=== PATIENT | female | born 1945 | race Two or more races ===

== ENCOUNTER 2017-06-29 02:03 | Inpatient (IN) | payer MEDICARE, MEDICAID ==
[~2017-06-29] VITALS: Ht 172.7 cm; Wt 62.2 kg
--- NOTE | 2017-06-29 02:15 | NUR ---
PT TO ER BED 6, PT BIB PA FROM [facility]. PT HAS DRAINING RLQ ABD ABCESS. PT PLACED IN GOWN AND ON MANAGER COSTING. VSS/RESP EVEN UNLABORED/NAD NOTED/SKIN MOIST TO THE TOUCH/DENIES N-V-D/AOX2. AWAITING MD CURRIE.
[2017-06-29] MEDS ORDERED: PIPERACILLIN /TAZOBACTAM 3.375 G in IV D5W 50 ML IV ONE (02:30)
[2017-06-29] MEDS ORDERED: IV NS 0.9% 1,000 ML BAG IV ONE ×3 (02:30→05:30)
[2017-06-29] MEDS ORDERED: VANCOMYCIN 1 GM in IV D5W 250 ML IV ONE ×2 (02:30→05:00)
--- NOTE | 2017-06-29 02:30 | NUR ---
AT BEDSIDE FOR EVAL. WOUND CULT OBTAINED AND SENT TO LAB FROM [facility] TO RLQ.
--- NOTE | 2017-06-29 02:40 | NUR ---
20G IV TO R FA USING ASEPTIC TECH, BLOOD CULT X 2 AND BLOOD HANDED OVER TO LAB AT THE BEDSIDE. 18G IV TO L FA USING ASEPTIC TECH, BOTH IV'S FLUSH EASILY WITH NS.
[2017-06-29] MEDS ORDERED: VANCOMYCIN 1 GM VIAL ONE ×2 (02:54→03:02)
[2017-06-29] MEDS ORDERED: PIPERACILLIN /TAZOBACTAM 3.375 G VIAL IV ONE ×2 (02:54→03:02)
[2017-06-29 02:58] LABS: BASOPHILS # (AUTO) 0.2 /CMM (0.0-0.2); BASOPHILS % (AUTO) 0.5 % (0.0-2.0); EOSINOPHILS % (AUTO) 0.1 % (0.0-6.0); HEMATOCRIT 28 % (33-45); HEMOGLOBIN 8.8 g/dL (11.5-14.8); LYMPHOCYTES # (AUTO) 1.5 /CMM (0.8-4.8); MEAN CORPUSCULAR HEMOGLOBIN 24 PG (26.0-33.0); MEAN CORPUSCULAR HGB CONC 32 g/dl (31.0-36.0); MEAN CORPUSCULAR VOLUME 75 fL (82-100); MONOCYTES % (AUTO) 3.1 % (2.0-12.0); NEUTROPHILS # (AUTO) 27.7 /CMM (1.8-8.9); NEUTROPHILS % (AUTO) 91.3 % (43.0-81.0); PLATELET COUNT (AUTO) 535 /CMM (150-450); RDW COEFFICIENT OF VARIATION 18.9 (11.5-15.0); RED BLOOD CELL COUNT(AUTO) 3.67 MIL/uL (4.0-5.2)
[2017-06-29] MEDS ORDERED: IV NS 0.9% 250 ML IV ONE (03:00)
[2017-06-29] MEDS ORDERED: IOHEXOL-300 100 ML VIAL IV ONE (03:00)
--- NOTE | 2017-06-29 03:05 | NUR ---
16FR F/C INSERTED USING SEWING MACHINE MAINTENANCE MECHANIC, URINE OBTAINED AND SENT TO THE LAB.
[2017-06-29 03:06] LABS: CARBON DIOXIDE 26 mmol/L (21-32); CHLORIDE 104 mmol/L (98-107); CREATININE 1.3 mg/dL (0.6-1.3); GLUCOSE 130 mg/dL (74-106); POTASSIUM 3.3 mmol/L (3.5-5.1); SODIUM SERUM 140 mmol/L (136-145); UREA NITROGEN, BLOOD 22 mg/dL (7-18)
[2017-06-29 03:10] LABS: INR 1.05 (0.87-1.13); PROTHROMBIN TIME 10.9 SECS (9.5-12.7)
--- NOTE | 2017-06-29 03:10 | NUR ---
XRAY AT THE BEDSIDE.
[2017-06-29 03:11] LABS: WHITE BLOOD COUNT (AUTO) 30.4 K/uL (4.3-11.0)
[2017-06-29 03:12] LABS: ALANINE AMINOTRANSFERASE 22 U/L (12-78); ALBUMIN 2.1 g/dL (3.4-5.0); ALKALINE PHOSPHATASE 108 U/L (46-116); ASPARTATE AMINOTRANSFERASE 22 U/L (15-37); BILIRUBIN,DIRECT 0.1 mg/dL (0.0-0.2); BILIRUBIN,TOTAL 0.2 mg/dL (0.2-1.0); TOTAL PROTEIN, SERUM 7.5 g/dL (6.4-8.2)
[2017-06-29 03:14] LABS: TROPONIN I < 0.017 ng/mL (0.00-0.056)
[2017-06-29 03:15] LABS: APPEARANCE,URINE CLOUDY (CLEAR); BILIRUBIN,URINE NEGATIVE (NEGATIVE); BLOOD, URINE 3+ Ery/uL (NEGATIVE); COLOR,URINE YELLOW (YELLOW); KETONES,URINE NEGATIVE (NEGATIVE); LEUKOCYTE ESTERASE ,URINE 3+ (NEGATIVE); NITRITE, URINE POSITIVE (NEGATIVE); PH,URINE 5.5 (5.0-8.0); PROTEIN,URINE 1+ mg/dl (NEGATIVE); UGLUCOSE NEGATIVE (NEGATIVE); UROBILINOGEN,URINE 0.2 EU/dL (0.2)
--- NOTE | 2017-06-29 03:19 | NUR ---
PT TO CT VIA STRETCHER. VSS
[2017-06-29 03:29] LABS: BACTERIA,URINE 3+ /HPF (None Seen); RBC,URINE 21-50 /HPF (0-2); WBC,URINE 81-100 /HPF (0-3)
[2017-06-29 03:30] LABS: SQUAMOUS EPITHELIAL CELL,UR Moderate /HPF (None Seen)
--- NOTE | 2017-06-29 03:31 | NUR ---
PT BACK FROM CT.
[2017-06-29 03:41] LABS: BAND % (MANUAL) 10 % (0.0-5.0); LYMPHOCYTES % (MANUAL) 4 % (16-48); MONOCYTES % (MANUAL) 3 % (0-11.0); NEUTROPHILS % (MANUAL) 83 (42-76)
--- NOTE | 2017-06-29 04:30 | NUR ---
PT RESTING QUIETLY, RESP EVEN/UNLABORED. PT TO BE ADMITTED.
[2017-06-29] MEDS ORDERED: PARO10TA26 PO (04:40)
[2017-06-29] MEDS ORDERED: HYDR-552 PO (04:40)
[2017-06-29] MEDS ORDERED: MAGN2400 PO (04:40)
[2017-06-29] MEDS ORDERED: ACET-868 PO (04:40)
[2017-06-29] MEDS ORDERED: ONDANSETRON HCL/PF 4 MG/2 ML VIAL IVP PRN (05:00)
[2017-06-29] MEDS ORDERED: LORAZEPAM INJ 2 MG/ML VIAL IVP PRN (05:00)
--- NOTE | 2017-06-29 05:15 | NUR ---
REPORT GIVEN TO TIFFANIE FOR RODDY. PT GOING TO TELE [phone].
--- NOTE | 2017-06-29 05:25 | NUR ---
PT TRANSPORTED VIA STRETCHER TO [place] [id number] WITH RN, ACLS PROTOCOL.
[2017-06-29 05:33] LABS: CALCIUM, SERUM 7.7 mg/dL (8.5-10.1); CARBON DIOXIDE 25 mmol/L (21-32); CHLORIDE 111 mmol/L (98-107); CREATININE 1.2 mg/dL (0.6-1.3); GLUCOSE 140 mg/dL (74-106); POTASSIUM 3.4 mmol/L (3.5-5.1); SODIUM SERUM 143 mmol/L (136-145); UREA NITROGEN, BLOOD 19 mg/dL (7-18)
--- NOTE | 2017-06-29 05:35 | NUR ---
MS RN INITIAL NOTES RECEIVED PT AWAKE,VERBALLY RESPONSIVE, ON O2 VIA NC AT 2L/MIN , NO SOB,NO APPARENT DISTRESS NOTED. DENIES ANY PAIN OR DISCOMFORT AT THIS TIME. IV SITE RT FA AND LT FA INTACT, PATENT.ON NS AT 125ML/HR. .CALL LIGHT WITHIN REACH.WILL CONTINUE TO MONITOR ACCORDINGLY
[2017-06-29 05:41] LABS: ALANINE AMINOTRANSFERASE 17 U/L (12-78); ALBUMIN 1.6 g/dL (3.4-5.0); ALKALINE PHOSPHATASE 87 U/L (46-116); ASPARTATE AMINOTRANSFERASE 22 U/L (15-37); BILIRUBIN,DIRECT 0.1 mg/dL (0.0-0.2); BILIRUBIN,TOTAL 0.2 mg/dL (0.2-1.0); TOTAL PROTEIN, SERUM 5.9 g/dL (6.4-8.2)
--- NOTE | 2017-06-29 05:58 | NUR ---
RN NOTES NS 125ML/HR FOR SEPTIC PROTOCOL STARTED PER DR. KILPATRICK ORDER
[2017-06-29 06:00] VITALS: BP 128/71
[2017-06-29] MEDS ORDERED: PIPERACILLIN /TAZOBACTAM 3.375 G in IV D5W 50 ML IV SCH (06:00)
--- NOTE | 2017-06-29 06:15 | NUR ---
RN NOTES VANCOMYCIN 1 GM AND ZOSYN 3.375 GIV WAS NOT GIVEN PT. JUST RECEIVED IT IN ER
--- NOTE | 2017-06-29 06:50 | NUR ---
RN NOTES SPOKE TO DR. KILPATRICK AND INFORMED REGARDING PT. POTASSIUM LEVEL OF 3.4. DR. KILPATRICK ORDERED POTASSIUM 40MEQ PO ORDER NOTED AND CARRIED OUT
[2017-06-29] MEDS ORDERED: POTASSIUM CHLORIDE 20 MEQ TAB.PRT.SR PO ONE ×2 (06:55→07:00)
--- NOTE | 2017-06-29 07:10 | NUR ---
telecommunications sales representative initial notes Received patient in bed, asleep, head of bed elevated, no SOB or distress noted. on 02 @ 2lpm via NC and tolerated well, o2 saturation of 98%. Alert and oriented x 3, verbally responsive and able to make needs known. Sweeney in placed attached to drainage bag with no sediment noted. On tele monitor SR heart rate of 70. IV intact and patent with IVF infusing well. Kept patient clean and comfortable in bed, call light with in patient reach, will continue to monitor accordingly.
--- NOTE | 2017-06-29 07:34 | NUR ---
MS RN CLOSING NOTES PT IN BED, ON O2 VIA NC AT 2L/MIN, NO SOB, NO APPARENT DISTRESS NOTED. NO C/O OF PAIN OR DISCOMFORT .ATTENDED ALL NEEDS. CALL LIGHT WITHIN REACH. WILL CONTINUE TO MONITOR ACCORDINGLY.
--- NOTE | 2017-06-29 07:44 | NUR ---
RN NOTES CALLED PT. SNF AND SPOKE TO NEFTALI REGARDING PT PNA VACCINE AND FLU VACCINE. PT DID NOT RECEIVED ANYTHING. ENDORSED TO DAYSHIFT ABOUT IT
[2017-06-29] MEDS ORDERED: FEE PK DOSING 1 MIN EA MC ONE (07:53)
[2017-06-29 08:00] VITALS: BP 99/44
[2017-06-29] MEDS: PANTOPRAZOLE 40 MG VIAL IV SCH (08:44)
[2017-06-29] MEDS: ZOSYN IVPB 3.375 G in IV D5W 50ml IV SCH ×3 (10:23→21:01)
--- NOTE | 2017-06-29 10:48 | NUR ---
WOUND CARE CONSULT: PT PRESENTS WITH OPEN AREA TO RT ABDOMEN WITH LARGE AMOUNT OF PURULENT DRAINAGE. RECOMMEND COLOSTOMY POUCH FOR WOUND/SKIN MANAGEMENT. POUCH PLACED. PT TOLERATED WELL RECOMMEND SURGICAL CONSULT. SACRAL SCARRING NOTED. PT IS INCONTINENT AND IMMOBILE. LEFT LATERAL FOOT NOTED TO HAVE DRY BROWN INTACT DEEP TISSUE INJURY, PRESENT ON ADMISSION. WILL SEE PRN. IN AGREEMENT WITH PLAN OF CARE. ALL WOUND AND SKIN PROTECTION RECOMMENDATIONS DISCUSSED WITH NURSING STAFF. KALIA ISOFLEX LOW AIRLOSS BED TO BE PLACED. IN AGREEMENT WITH PLAN OF CARE. Addendum: 06/29/17 at 1051 by MALDONADO BOLTON WNDNU Amended: Links added.
[2017-06-29] MEDS ORDERED: Z GUARD REMEDY 2 OZ OINT TP PRN (11:00)
[2017-06-29] MEDS ORDERED: ERYTHROMYCIN BASE (250 MG) 250 MG CAPSULE.DR PO SCH ×2 (13:00→21:00)
[2017-06-29] MEDS: Z GUARD REMEDY 2 OZ OINT TP SCH (14:14)
[2017-06-29] MEDS: NEOMYCIN SULFATE (500MG) 500 MG TABLET PO SCH ×3 (14:14→17:46)
[2017-06-29] MEDS: IV NS 0.9% 1,000 ML IV PRN (14:14)
[2017-06-29 16:00] VITALS: BP 99/50
[2017-06-29] MEDS: VANCOMYCIN 0.75 GM in IV D5W 250 ML IV SCH (16:09)
[2017-06-29] MEDS ORDERED: MAGNESIUM CITRATE 296 ML BOTTLE PO ONE ×2 (17:30→23:00)
--- NOTE | 2017-06-29 19:16 | NUR ---
ms rn closing notes Alll needs provided, attended, and anticipated. chakraborty output of 500ml, no complaint of pain or discomfort noted. Endorsed to next shift RN to continue care.
--- NOTE | 2017-06-29 19:55 | NUR ---
Patient alert and orientated. Aware of going for surgery in the AM. Spoke to her about the surgery and was able to answer her questions. Made aware of being NPO at midnight. Left foot in special boot. No skin breakdown on the feet or heels. Repositioned.
[2017-06-29] MEDS ORDERED: ERYTHROMYCIN STEARATE 250 MG TABLET PO SCH ×2 (21:03→21:04)
[2017-06-29 22:04] VITALS: BP 110/53
[2017-06-30] VITALS (9 sets, daily range): BP systolic 87–117; BP diastolic 41–61
[2017-06-30] MEDS: IV NS 0.9% 1,000 ML IV PRN (00:20)
[2017-06-30] MEDS: ZOSYN IVPB 3.375 G in IV D5W 50ml IV SCH ×2 (02:51→11:05)
--- NOTE | 2017-06-30 03:52 | NUR ---
Barbara is asleep at this time. Incontinent larges amount watery stool, d/t ordered to drink Mag Citrate. She consumed the total 296 mls. She has been NPO since 2400. Explained to the patient about her surgery and gave her the approx times, Dentures placed in a cup with label at the bedside. Abcess right abd. Covered with a colostomy bag drainage orange brown 60 ml estamated in the bag. ATBs as ordered infused w/o problem left arm ga 20. Noted foot drop matt feet, elevated the heels to hopefully prevent soreness or breakdown. She is cooperative and [pleasent this 12 hours
[2017-06-30] MEDS: VANCOMYCIN 0.75 GM in IV D5W 250 ML IV SCH (04:05)
--- NOTE | 2017-06-30 07:10 | NUR ---
MS Initial notes Received patient laying in bed comfortably with daughter and son at bedside. Alert, verbally responsive. Patient has been NPO post midnight d/t scheduled right hemicolectomy this am. colostomy pouch noted to right abdominal drainage. Denies any pain at this time. All consents signed for surgery. Patient has been picked up by surgery at 0730 in stable condition.
[2017-06-30] MEDS ORDERED: ANESTHESIA TRAY IN PYXIS 1 EA TRAY MC ONE (07:12)
[2017-06-30] MEDS ORDERED: BUPIVACAINE 0.5 % PF 150 MG/30 ML VIAL ONE (07:12)
[2017-06-30] MEDS ORDERED: LIDOCAINE 2%-EPI 1:200,000 20 ML VIAL IJ ONE (07:14)
[2017-06-30 07:40] LABS: BASOPHILS % (AUTO) 0.1 % (0.0-2.0); EOSINOPHILS # (AUTO) 0.3 /CMM (0.0-0.7); HEMATOCRIT 27 % (33-45); HEMOGLOBIN 8.4 g/dL (11.5-14.8); LYMPHOCYTES # (AUTO) 1.1 /CMM (0.8-4.8); LYMPHOCYTES % (AUTO) 8.3 % (20.0-44.0); MEAN CORPUSCULAR HEMOGLOBIN 24 PG (26.0-33.0); MEAN CORPUSCULAR HGB CONC 31 g/dl (31.0-36.0); MEAN CORPUSCULAR VOLUME 77 fL (82-100); MONOCYTES # (AUTO) 0.5 /CMM (0.1-1.30); MONOCYTES % (AUTO) 3.5 % (2.0-12.0); NEUTROPHILS # (AUTO) 11.3 /CMM (1.8-8.9); NEUTROPHILS % (AUTO) 86.1 % (43.0-81.0); PLATELET COUNT (AUTO) 479 /CMM (150-450); RDW COEFFICIENT OF VARIATION 18.2 (11.5-15.0); RED BLOOD CELL COUNT(AUTO) 3.49 MIL/uL (4.0-5.2); WHITE BLOOD COUNT (AUTO) 13.2 K/uL (4.3-11.0)
[2017-06-30] MEDS ORDERED: FENTANYL PF 100MCG/2ML AMPUL ONE (07:47)
[2017-06-30] MEDS ORDERED: ROCURONIUM BROMIDE 50 MG/5 ML ONE (07:48)
[2017-06-30 07:51] LABS: ALANINE AMINOTRANSFERASE 19 U/L (12-78); ALBUMIN 1.5 g/dL (3.4-5.0); ALKALINE PHOSPHATASE 97 U/L (46-116); ASPARTATE AMINOTRANSFERASE 21 U/L (15-37); BILIRUBIN,TOTAL 0.1 mg/dL (0.2-1.0); CARBON DIOXIDE 20 mmol/L (21-32); CHLORIDE 115 mmol/L (98-107); GLUCOSE 106 mg/dL (74-106); POTASSIUM 4.4 mmol/L (3.5-5.1); SODIUM SERUM 143 mmol/L (136-145); UREA NITROGEN, BLOOD 12 mg/dL (7-18)
[2017-06-30] MEDS ORDERED: METRONIDAZOLE 500MG/ NS 100ML 100 ML IV ONE (08:50)
[2017-06-30] MEDS: Z GUARD REMEDY 2 OZ OINT TP SCH (09:00)
[2017-06-30] MEDS: PANTOPRAZOLE 40 MG VIAL IV SCH (09:00)
--- NOTE | 2017-06-30 09:30 | NUR ---
MS RN Notes Patient is in surgery for right hemicolectomy.
[2017-06-30] MEDS ORDERED: CELLULOSE,OXIDIZED 1 EA PACK MC ONE (09:32)
[2017-06-30 10:48] LABS: EOSINOPHILS # (AUTO) 0.2 /CMM (0.0-0.7); EOSINOPHILS % (AUTO) 0.7 % (0.0-6.0); HEMATOCRIT 27 % (33-45); HEMOGLOBIN 8.5 g/dL (11.5-14.8); LYMPHOCYTES # (AUTO) 1.3 /CMM (0.8-4.8); LYMPHOCYTES % (AUTO) 5.3 % (20.0-44.0); MEAN CORPUSCULAR HEMOGLOBIN 25 PG (26.0-33.0); MEAN CORPUSCULAR HGB CONC 32 g/dl (31.0-36.0); MEAN CORPUSCULAR VOLUME 76 fL (82-100); MONOCYTES # (AUTO) 0.6 /CMM (0.1-1.30); MONOCYTES % (AUTO) 2.3 % (2.0-12.0); NEUTROPHILS # (AUTO) 22.4 /CMM (1.8-8.9); NEUTROPHILS % (AUTO) 91.7 % (43.0-81.0); PLATELET COUNT (AUTO) 659 /CMM (150-450); RDW COEFFICIENT OF VARIATION 18.5 (11.5-15.0); RED BLOOD CELL COUNT(AUTO) 3.49 MIL/uL (4.0-5.2); WHITE BLOOD COUNT (AUTO) 24.5 K/uL (4.3-11.0)
[2017-06-30 11:25] LABS: NEUTROPHILS % (MANUAL) 91 (42-76)
[2017-06-30 11:26] LABS: BAND % (MANUAL) 1 % (0.0-5.0); EOSINOPHILS % (MANUAL) 1 % (0-4); LYMPHOCYTES % (MANUAL) 4 % (16-48); METAMYELOCYTES % 1 % (0-0); MONOCYTES % (MANUAL) 2 % (0-11.0)
[2017-06-30] MEDS ORDERED: MORPHINE SULFATE INJ 4 MG/ML DISP.SYRIN IV PRN ×2 (11:30)
[2017-06-30] MEDS ORDERED: ZOLPIDEM TARTRATE 5 MG TABLET PO PRN (11:30)
[2017-06-30] MEDS: METOCLOPRAMIDE HCL 10 MG/2 ML VIAL IV SCH ×2 (12:14→17:18)
[2017-06-30] MEDS: IV D5/0.45 NACL W/20 MEQ KCL 1L IV PRN ×2 (14:38)
[2017-06-30] MEDS: MORPHINE SULFATE INJ 2 MG/ML DISP.SYRIN IV PRN ×3 (14:39→22:37)
[2017-06-30] MEDS: ANCEF 1 GM/50 ML D5W IV SCH ×2 (16:12)
[2017-06-30] MEDS: METRONIDAZOLE 500MG/ NS 100ML 500 MG in PREMIX 1 EA IV SCH (17:05)
--- NOTE | 2017-06-30 19:20 | NUR ---
MS RN closing notes All needs met and rendered. Kept patient clean and dry. Call light within reach. Endorsed to next shift RN to continue care.
--- NOTE | 2017-06-30 19:30 | NUR ---
MS RN OPENING NOTES: PATIENT IN BED, AOX4, ON O2 AT 2 LPM VIA NC, BREATHING EVEN AND UNLABORED, BREATH SOUNDS CLEAR BILATERALLY. APPEARS CALM AND IN NO DISTRESS, DENIES PAIN AT THIS TIME. PIV OVER LFA G 18 INTACT AND PATENT, INFUSING WELL WITH D5 1/2 NS + 20 MEQS KCL RUNNING AT 100 ML/HR. PATIENT HAS DENISE DRAIN INSERTED AT R SIDE OF ABDOMEN, DRAINED 25 CC SEROSANGUINEOUS DRAINAGE AT HTIS TIME, MAINTAINED NEGATIVE PRESSURE OF DRAIN. FOELY CATHETER IN PLACE DRAINING CLEAR YELLOW URINE. PROVIDED FOR COMFORT AND SAFETY. BED IN LWOEST AND LOCKED POSITION, SIDERAILS UP X3. CALL LIGHT WITHIN REACH. WILL CONT TO MONITOR.
--- NOTE | 2017-06-30 22:38 | NUR ---
RN NOTES: ADMINISTERED MORPHINE 2 MG IV PRN FOR R ABDOMEN PAIN SCALED AT 7/10. WILL CONT TO MONITOR.
[2017-07-01] MEDS: ANCEF 1 GM/50 ML D5W IV SCH ×4 (00:17→08:09)
[2017-07-01] MEDS: METOCLOPRAMIDE HCL 10 MG/2 ML VIAL IV SCH ×4 (00:17→17:00)
[2017-07-01] MEDS: METRONIDAZOLE 500MG/ NS 100ML 500 MG in PREMIX 1 EA IV SCH ×3 (01:42→16:47)
[2017-07-01] MEDS: IV D5/0.45 NACL W/20 MEQ KCL 1L IV PRN ×4 (03:50→15:41)
[2017-07-01 05:50] VITALS: BP 98/49
--- NOTE | 2017-07-01 06:50 | NUR ---
MS RN CLOSING NOTES: PATIENT IN BED, AOX3, ON O2 AT 2LPM VIA NC, BREATHING EVEN AND UNLABORED. APPEARS CLAM AND IN NO DISTRESS. DENISE DRAIN AT RLQ OF ABDOMEN, STILL DRAINING SEROSANGUINEOUS DRAINAGE, DRAINED TOTAL OF 85 ML THROUGH SHIFT. PIV OVER LFA G 18 INTACT AND INFUSING WELL WITH D5 1/2 NS + 20 MEQS KCL RUNNING AT 100 ML/HR. GLYNN CATHETER DRAINING CLEAR YELLOW URINE, DRAINED TOTAL OF 400 ML THROUGH SHIFT. PROVIDED FOR COMFORT AND SAFETY. MORNING CARE RENDERED. BED IN LOWEST AND LOCKED POSITION, SIDERAILS UP X3, CALL LIGHT WITHIN REACH. WILL ENDORSE TO AM RN FOR RODDY.
--- NOTE | 2017-07-01 07:44 | NUR ---
MS RN: INITIAL NOTE RECEIVED PT A/OX3. NO DISTRESS NOTED. NO SOB NOTED. NO PAIN NOTED. S/P R ABD ABSCESS REMOVAL. DRAINAGE AT SITE. DRAINING SEROUSE SANGRIOUS FLUIDS. GLYNN CATH IN PLACE AND DRAINING. ON CLEAR LIQUIDS. LFA D5 1/2 NS + KCL 20MEQ RUNNING AT 100ML/HR. SITE CLEAR AND PATENT. NO REDNESS OR BLEEDING. DRESSING INTACT ON MIDLINE OF ABD. RESTING COMFORTABLY IN BED. CALL LIGHT WITHIN REACH.
[2017-07-01 08:00] VITALS: BP 90/63
[2017-07-01] MEDS: PANTOPRAZOLE 40 MG VIAL IV SCH (08:08)
[2017-07-01] MEDS: Z GUARD REMEDY 2 OZ OINT TP SCH (08:09)
[2017-07-01] MEDS: ENOXAPARIN SODIUM 40 MG/0.4 ML DISP.SYRIN SQ SCH (08:15)
[2017-07-01 08:59] LABS: BASOPHILS % (AUTO) 0.1 % (0.0-2.0); EOSINOPHILS # (AUTO) 0.1 /CMM (0.0-0.7); EOSINOPHILS % (AUTO) 0.3 % (0.0-6.0); HEMATOCRIT 26 % (33-45); HEMOGLOBIN 8.1 g/dL (11.5-14.8); LYMPHOCYTES # (AUTO) 1.3 /CMM (0.8-4.8); LYMPHOCYTES % (AUTO) 6.2 % (20.0-44.0); MEAN CORPUSCULAR HEMOGLOBIN 24 PG (26.0-33.0); MEAN CORPUSCULAR HGB CONC 32 g/dl (31.0-36.0); MEAN CORPUSCULAR VOLUME 77 fL (82-100); MONOCYTES # (AUTO) 0.9 /CMM (0.1-1.30); MONOCYTES % (AUTO) 4.2 % (2.0-12.0); NEUTROPHILS % (AUTO) 89.2 % (43.0-81.0); PLATELET COUNT (AUTO) 765 /CMM (150-450); RDW COEFFICIENT OF VARIATION 18.5 (11.5-15.0); RED BLOOD CELL COUNT(AUTO) 3.35 MIL/uL (4.0-5.2); WHITE BLOOD COUNT (AUTO) 21.3 K/uL (4.3-11.0)
[2017-07-01 09:08] LABS: CARBON DIOXIDE 20 mmol/L (21-32); CHLORIDE 110 mmol/L (98-107); CREATININE 1.2 mg/dL (0.6-1.3); GLUCOSE 148 mg/dL (74-106); MAGNESIUM 2.4 mg/dL (1.8-2.4); PHOSPHORUS 2.9 mg/dL (2.5-4.9); POTASSIUM 4.8 mmol/L (3.5-5.1); SODIUM SERUM 136 mmol/L (136-145); UREA NITROGEN, BLOOD 9 mg/dL (7-18)
--- NOTE | 2017-07-01 15:48 | NUR ---
IV ON L FA LEAKING. SITE CELAR. D/C IV. STARTED NEW IV ON R FA #22. PATENT.
[2017-07-01 16:00] VITALS: BP 110/44
[2017-07-01] MEDS: LACTOBACILLUS RHAMNOSUS GG 1 EACH CAP.SPRINK PO SCH (16:44)
[2017-07-01] MEDS: ACETAMINOPHEN 325 MG TABLET PO PRN (16:44)
--- NOTE | 2017-07-01 17:30 | NUR ---
RE-CHECKED TEMPERATURE. REDUCED TO 99.0. NO DISTRESS NOTED. WILL CONTINUE TO TO MONITOR.
--- NOTE | 2017-07-01 18:49 | NUR ---
MS RN: CLOSING NOTE PT TOOK ALL MEDICATIONS ON TIME. NO ADVERSE REACTIONS NOTED. NO PAIN NOTED. NO SOB NOTED. ON 2L NC SATING AT 96%. A/OX2-3. GLYNN CATH IN PLACE AND DRAINING. DENISE DRAIN ON R ABD S/P ABSCESS REMOVAL DRAINING. OUTPUT 55ML. DRAINAGE REDUCED. SEROUS SANGUINEOUS FLUIDS. NO PURULENT DISCHARGE NOTED. SITE CLEAR. DRESSING IN ABD MIDLINE INTACT. SKIN IS CLEAR. NO S/S OF INFECTION NOTED. ON CLEAR LIQUID DIET. RFA #22 IV RUNNING D5 1/2 NS +KCL 20MEQ AT 100ML/HR. SITE CLEAR AND PATENT. TYLENOL ADMIN DUE TO SLIGHT FEVER 100.1. RECHECKED FEVER IS 99.0. NO CHANGES IN LOC NOTED. RESTING COMFORTABLY IN BED. CALL LIGHT WITHIN REACH.
--- NOTE | 2017-07-01 19:10 | NUR ---
MS KAYLI OPENING NOTES: RECEIVED PT AND IS AWAKE IN BED. PT IS A/OX2-3. PT ON ROOM AIR AND IS TOLERATING WELL. PT HAS GLYNN CATH AND IS ATTACHED TO DRAINING BAG WITH YELLOW URINE DRAINING. DENISE DRAIN ALSO NOTED ON R AB NOTED WITH SEROSANGUINEOUS FLUID DRAINING. DRESSING IN ABDOMEN MIDLINE INTACT. CLARE; NO S/S OF INFECTION NOTED AROUND. PT HAS RFA #22G AND IS BEING INFUSED WITH IV POTASSIUM CHLORIDE AT 100ML/HR. CALL LIGHT WITHIN PT'S REACH. BED KEPT IN LOW, LOCKED POSITION, AND SIDE RAILS X 2UP. WILL CONTINUE TO MONITOR PT. Addendum: 07/02/17 at 0313 by SERGEY WELCH RN L FOOT BOOT NOTED.
[2017-07-01 20:00] VITALS: BP 106/45
[2017-07-01] MEDS: SULFAMETH/TRIMETH 800/160 MG 1 UDTAB TABLET PO SCH (20:05)
[2017-07-02] VITALS (9 sets, daily range): BP systolic 122–139; BP diastolic 54–67
[2017-07-02] MEDS: METRONIDAZOLE 500MG/ NS 100ML 500 MG in PREMIX 1 EA IV SCH ×3 (00:33→17:03)
[2017-07-02] MEDS: METOCLOPRAMIDE HCL 10 MG/2 ML VIAL IV SCH ×4 (00:33→17:03)
[2017-07-02] MEDS: IV D5/0.45 NACL W/20 MEQ KCL 1L IV PRN ×4 (03:28→17:51)
--- NOTE | 2017-07-02 06:53 | NUR ---
MS RN CLOSING NOTES: ALL NEEDS WERE ATTENDED AND ANTICIPATED FOR. PT IS RESTING COMFORTABLY IN BED WITH SEMI-DAO'S POSITION. PT IS A/OX2-3. PT ON ROOM AIR AND IS TOLERATING WELL. PT HAS GLYNN CATH AND IS ATTACHED TO DRAINING BAG WITH YELLOW URINE DRAINING. GLYNN CATH OUTPUT WAS 1800ML. DENISE DRAIN ALSO NOTED ON R AB NOTED WITH SEROSANGUINEOUS FLUID DRAINING. DENISE OUTPUT WAS 5ML. DRESSING IN ABDOMEN MIDLINE INTACT WELL DRESSING FOR DENISE DRAIN INTACT. CLARE; NO S/S OF INFECTION NOTED AROUND. PT HAS RFA #22G AND IS BEING INFUSED WITH IV POTASSIUM CHLORIDE AT 100ML/HR. CALL LIGHT WITHIN PT'S REACH. BED KEPT IN LOW, LOCKED POSITION, AND SIDE RAILS X 2UP. WILL ENDORSE TO AM NURSE FOR RODDY.
[2017-07-02 07:13] LABS: EOSINOPHILS # (AUTO) 0.3 /CMM (0.0-0.7); EOSINOPHILS % (AUTO) 1.6 % (0.0-6.0); HEMATOCRIT 22 % (33-45); LYMPHOCYTES # (AUTO) 1.4 /CMM (0.8-4.8); LYMPHOCYTES % (AUTO) 7.5 % (20.0-44.0); MEAN CORPUSCULAR HEMOGLOBIN 24 PG (26.0-33.0); MEAN CORPUSCULAR HGB CONC 32 g/dl (31.0-36.0); MEAN CORPUSCULAR VOLUME 75 fL (82-100); MONOCYTES # (AUTO) 0.9 /CMM (0.1-1.30); MONOCYTES % (AUTO) 5.1 % (2.0-12.0); NEUTROPHILS # (AUTO) 15.6 /CMM (1.8-8.9); NEUTROPHILS % (AUTO) 85.8 % (43.0-81.0); PLATELET COUNT (AUTO) 649 /CMM (150-450); RDW COEFFICIENT OF VARIATION 18.8 (11.5-15.0); RED BLOOD CELL COUNT(AUTO) 2.89 MIL/uL (4.0-5.2); WHITE BLOOD COUNT (AUTO) 18.2 K/uL (4.3-11.0)
[2017-07-02 07:28] LABS: HEMOGLOBIN 6.9 g/dL (11.5-14.8)
[2017-07-02 07:30] LABS: CARBON DIOXIDE 21 mmol/L (21-32); CHLORIDE 111 mmol/L (98-107); GLUCOSE 115 mg/dL (74-106); MAGNESIUM 2.1 mg/dL (1.8-2.4); PHOSPHORUS 2.5 mg/dL (2.5-4.9); POTASSIUM 4.2 mmol/L (3.5-5.1); SODIUM SERUM 138 mmol/L (136-145); UREA NITROGEN, BLOOD 6 mg/dL (7-18)
--- NOTE | 2017-07-02 07:43 | NUR ---
MS RN: INITIAL NOTE RECEIVED PT A/OX2-3. ON MS. NO DISTRESS NOTED.NO SOB NOTED. ON 2L NC SATING AT 96%. GLYNN CATH IN PLACE AND DRAINING. DENISE DRAIN ON R ABD SITE DRAINING. INCISION SITE ON MIDLINE OF ABD CLEAR. NO S/S OF INFECTION NOTED. ON CLEAR LIQUID DIET. R FA #22 RUNNING D5 1/2 NS WITH 20 MEQ KCL. SITE CLEAR NAD PATENT. RUNNING AT 100ML/HR. RESTING COMFORTABLY IN BED. CALL LIGHT WITHIN REACH.
[2017-07-02] MEDS: LACTOBACILLUS RHAMNOSUS GG 1 EACH CAP.SPRINK PO SCH ×2 (08:26→16:23)
[2017-07-02] MEDS: SULFAMETH/TRIMETH 800/160 MG 1 UDTAB TABLET PO SCH ×2 (08:26→22:23)
[2017-07-02] MEDS: PANTOPRAZOLE 40 MG VIAL IV SCH (08:26)
[2017-07-02] MEDS: Z GUARD REMEDY 2 OZ OINT TP SCH (08:27)
[2017-07-02] MEDS: ENOXAPARIN SODIUM 40 MG/0.4 ML DISP.SYRIN SQ SCH (08:27)
--- NOTE | 2017-07-02 08:36 | NUR ---
NOTIFIED MD PINTO OF HGB 6.9 AND HCT 22. NEW ORDER TO HOLD LEVONOX AND ORDER 1UIT RCS TO ADMIN. ORDERS CARRIED OUT.
[2017-07-02 08:53] LABS: BAND % (MANUAL) 1 % (0.0-5.0); LYMPHOCYTES % (MANUAL) 5 % (16-48); MONOCYTES % (MANUAL) 7 % (0-11.0); NEUTROPHILS % (MANUAL) 87 (42-76)
--- NOTE | 2017-07-02 11:00 | NUR ---
D/C GLYNN PER MD KONG ORDER. NO BLEEDING NOTED. GLYNN DRAINED 700CC. WILL MONITOR URINE OUTPUT.
--- NOTE | 2017-07-02 12:10 | NUR ---
BLOOD INFUSIONS STARTED. VS STABLE. BP 124/56, PULSE 94, TEMP 98.4, RR 18, O2 98% ON 2L NC. NO DISTRESS NOTED. NO SOB NOTED. NO PAIN NOTED.
--- NOTE | 2017-07-02 12:25 | NUR ---
15 MIN VITAL STABLE. BP 129/55, PULSE 89, 02 99% ON 2L NC, TEMP 98.0, RR 19. NO REACTIONS NOTED. NO S/S OF REACTIONS NOTED. STABLE.
[2017-07-02] MEDS ORDERED: CEFTRIAXONE 1 G in IV D5W 50 ML IV SCH (13:00)
--- NOTE | 2017-07-02 13:03 | NUR ---
UNABLE TO ADMIN ROCEPHIN IV ATB DUE TO BLOOD TRANSFUSION. NOTIFIED PHARMACY TO CHANGE TIMING
--- NOTE | 2017-07-02 14:57 | NUR ---
BLOOD TRANSFUSION COMPLETE. NO S/S OF REACTIONS NOTED. VS STABLE THROUGHOUT INFUSION. NO DISTRESS NOTED. NO SOB NOTED. NO PAIN NOTED. ENDING VS ARE. BP 139/65, PULSE 90, RR19, TEMPERATURE 98.2, O2 97% ON 2L NC. RESTING COMFORTABLY IN BED. CALL LIGHT WITHIN REACH.
[2017-07-02] MEDS: ACETAMINOPHEN 325 MG TABLET PO PRN (16:23)
[2017-07-02] MEDS: CEFTRIAXONE 1 G in IV D5W 50 ML IV SCH (16:23)
--- NOTE | 2017-07-02 18:54 | NUR ---
MS RN: CLOSING NOTE PT A/OX2-3. CONFUSED AT TIMES. TOOK ALL MEDICATIONS ON TIME. NO ADVERSE REACTIONS NOTED. NO PAIN NOTED. PAIN CONTROLLED WITH PAIN MEDICATIONS. GLYNN CATH D/ PER MD KONG ORDER. PT VOIDED THROUGHOUT THE DAY. NO URINARY RETENTION NOTED. URINE OUTPUT FROM GLYNN 700CC. DENISE R ABD DRAIN IN PLACE. OUTPUT IS 32.5 OF SERIOUS SANGRIOUS FLUIDS. SITE CLEAR. MIDLINE INSERTION CLEAR. NO S/S OF INFECTION NOTED. R FA #22 RUNNING D5 1/2 NS 20MEQ KCL. SITE CLEAR AND PATENT. 1 UNIT RBC ADMINISTERED DUE TO LOW H/H. PT TOLERATED WELL. NO S/S OF ADVERSE REACTIONS NOTED. RESTING COMFORTABLY IN BED. CALL LIGHT WITHIN REACH.
[2017-07-03] MEDS: METRONIDAZOLE 500MG/ NS 100ML 500 MG in PREMIX 1 EA IV SCH ×3 (00:31→17:09)
[2017-07-03] MEDS: METOCLOPRAMIDE HCL 10 MG/2 ML VIAL IV SCH ×4 (00:31→17:08)
[2017-07-03] MEDS: IV D5/0.45 NACL W/20 MEQ KCL 1L IV PRN ×4 (06:02→16:30)
[2017-07-03 06:43] LABS: EOSINOPHILS # (AUTO) 0.2 /CMM (0.0-0.7); EOSINOPHILS % (AUTO) 0.8 % (0.0-6.0); HEMATOCRIT 29 % (33-45); HEMOGLOBIN 9.2 g/dL (11.5-14.8); LYMPHOCYTES # (AUTO) 1.1 /CMM (0.8-4.8); LYMPHOCYTES % (AUTO) 5.8 % (20.0-44.0); MEAN CORPUSCULAR HEMOGLOBIN 25 PG (26.0-33.0); MEAN CORPUSCULAR HGB CONC 32 g/dl (31.0-36.0); MEAN CORPUSCULAR VOLUME 77 fL (82-100); MONOCYTES # (AUTO) 0.7 /CMM (0.1-1.30); MONOCYTES % (AUTO) 3.3 % (2.0-12.0); NEUTROPHILS # (AUTO) 17.7 /CMM (1.8-8.9); NEUTROPHILS % (AUTO) 90.1 % (43.0-81.0); PLATELET COUNT (AUTO) 726 /CMM (150-450); RDW COEFFICIENT OF VARIATION 19.2 (11.5-15.0); RED BLOOD CELL COUNT(AUTO) 3.75 MIL/uL (4.0-5.2); WHITE BLOOD COUNT (AUTO) 19.7 K/uL (4.3-11.0)
--- NOTE | 2017-07-03 06:43 | NUR ---
ms/rn notes Patient remain in stable condition. No acute distress noted. Vital signs stable,afebrile. No complaints of any pain or discomfort. All needs attended. All nursing protocols implemented and were effective, Will continue plan of care.
--- NOTE | 2017-07-03 07:18 | NUR ---
RN INITIAL NOTES: REC'D PT AWAKE ON BED, NOT IN ANY DISTRESS, A/O X 2 - 3, DENIES ANY PAIN/DISCOMFORT AT THIS TIME. ON O2 AT 2LPM/NC, NO SOB. HAS RFA 622, PL, PATENT & INTACT W/ NO S/SX OF INFECTION/INFILTRATION NOTED W/ D5 1/2 NS + 20 MEQS KCL X 100 CC/HR INFUSING WELL. PT S/P HEMICOLECTOMY ON 06/30 W/ DENISE DRAIN ON W/ SEROSANGUINEOUS DRAINAGE. PROVIDED COMFORT & SAFETY MEASURES. BED KEPT LOW & IN LOCKED POS. CALL LIGHT PLACED W/IN REACH. WILL CONTINUE TO MONITOR AND ATTEND PT NEEDS.
[2017-07-03 08:00] VITALS: BP 120/59
[2017-07-03 08:55] LABS: CALCIUM, SERUM 8.2 mg/dL (8.5-10.1); CARBON DIOXIDE 21 mmol/L (21-32); CHLORIDE 108 mmol/L (98-107); GLUCOSE 146 mg/dL (74-106); MAGNESIUM 1.9 mg/dL (1.8-2.4); PHOSPHORUS 3.2 mg/dL (2.5-4.9); POTASSIUM 4.2 mmol/L (3.5-5.1); SODIUM SERUM 138 mmol/L (136-145); UREA NITROGEN, BLOOD 6 mg/dL (7-18)
[2017-07-03] MEDS: LACTOBACILLUS RHAMNOSUS GG 1 EACH CAP.SPRINK PO SCH ×2 (08:56→16:28)
[2017-07-03] MEDS: SULFAMETH/TRIMETH 800/160 MG 1 UDTAB TABLET PO SCH ×2 (08:56→20:58)
[2017-07-03] MEDS: PANTOPRAZOLE 40 MG VIAL IV SCH (08:56)
[2017-07-03] MEDS: Z GUARD REMEDY 2 OZ OINT TP SCH (08:57)
[2017-07-03] MEDS: ENOXAPARIN SODIUM 40 MG/0.4 ML DISP.SYRIN SQ SCH (08:58)
--- NOTE | 2017-07-03 12:57 | NUR ---
RN NOTES: PT SEEN & EXAMINED BR DR. KONG W/ ORDERS MADE & CARRIED OUT. REMOVED DENISE DRAIN. DRESSING CHANGED ON THE ABDOMEN - NOTED 22 STAPLE WIRES ON. NO DRAINAGE NOTED.
--- NOTE | 2017-07-03 14:58 | NUR ---
RN NOTES: RELAYED XRAY OF ABDOMEN RESULTS TO DR. KONG W/ ORDERS TO PUT PT NPO EXCEPT MEDS AND TO REPEAT KUB MEHDI AM. PT MADE AWARE.
--- NOTE | 2017-07-03 15:27 | NUR ---
RN NOTES: PER DR. BLAIR PATEL TO CONTINUE HOME MEDS PAXIL 20 MG PO DAILY. NOTIFIED PHARMACY.
[2017-07-03 16:00] VITALS: BP_SYST 112; BP_SYST 120; BP_DIAS 54; BP_DIAS 58
[2017-07-03] MEDS: PAROXETINE HCL 10 MG TABLET PO SCH (16:29)
[2017-07-03] MEDS: CEFTRIAXONE 1 G in IV D5W 50 ML IV SCH (16:30)
--- NOTE | 2017-07-03 18:43 | NUR ---
RN CLOSING NOTES: NO ACUTE CHANGES NOTED W/IN SHIFT. PT TOLERATED ROOM AIR, NO SOB. RFA 622, PL, KEPT PATENT & INTACT W/ NO S/SX OF INFECTION/INFILTRATION NOTED W/ D5 1/2 NS + 20 MEQS KCL X 100 CC/HR INFUSING WELL. S/P HEMICOLECTOMY DRESSING KEPT CLEAN, DRY AND INTACT W/ NO S/SX OF INFECTION. PT REMINDED NPO EXCEPT MEDS WELL FAMILY W/ VERBALIZATION OF UNDERSTANDING. KEPT WELL RESTED. NEEDS ATTENDED. BED KEPT LOW & IN LOCKED POS. CALL LIGHT PLACED W/IN REACH. WILL ENDORSE TO PM RN FOR RODDY.
--- NOTE | 2017-07-03 19:25 | NUR ---
MS/RN NOTES RECEIVED PT. LYING IN BED. PT. IS AWAKE, ALERT AND ORIENTED X2-3. BREATHING EVEN AND UNLABORED ON ROOM AIR. NO SOB, RESPIRATORY DISTRESS OR COMPLAINTS OF PAIN NOTED AT THIS TIME. PT. WITH RIGHT FOREARM 22 GAUGE PERIPHERAL IV PRESENT, PATENT AND INTACT ADMINISTERING TO PT. D5 1/2 NS WITH 20 MEQ KCL @ 100ML/HR. PT. WITH ABDOMINAL DRESSING PRESENT, CLEAN, DRY AND INTACT. NO DRAINAGE OR BLEEDING NOTED. PT. WITH PREVIOUS RIGHT ABDOMINAL DENISE SITE DRESSING PRESENT, CLEAN, DRY AND INTACT. NO BLEEDING OR DRAINAGE NOTED. BED LOCKED AND IN LOWEST POSITION, SIDE RAILS UP X3, CALL LIGHT WITHIN REACH, WILL CONTINUE TO MONITOR.
[2017-07-03 20:00] VITALS: BP 120/54
[2017-07-04] MEDS: METRONIDAZOLE 500MG/ NS 100ML 500 MG in PREMIX 1 EA IV SCH ×3 (00:33→18:08)
[2017-07-04] MEDS: METOCLOPRAMIDE HCL 10 MG/2 ML VIAL IV SCH ×4 (00:33→18:01)
[2017-07-04] MEDS: IV D5/0.45 NACL W/20 MEQ KCL 1L IV PRN ×4 (06:18→21:28)
[2017-07-04 06:28] LABS: EOSINOPHILS # (AUTO) 0.2 /CMM (0.0-0.7); EOSINOPHILS % (AUTO) 1.1 % (0.0-6.0); HEMATOCRIT 28 % (33-45); HEMOGLOBIN 9.1 g/dL (11.5-14.8); LYMPHOCYTES # (AUTO) 1.4 /CMM (0.8-4.8); LYMPHOCYTES % (AUTO) 6.4 % (20.0-44.0); MEAN CORPUSCULAR HEMOGLOBIN 25 PG (26.0-33.0); MEAN CORPUSCULAR HGB CONC 33 g/dl (31.0-36.0); MEAN CORPUSCULAR VOLUME 77 fL (82-100); MONOCYTES # (AUTO) 0.8 /CMM (0.1-1.30); MONOCYTES % (AUTO) 3.9 % (2.0-12.0); NEUTROPHILS # (AUTO) 19.4 /CMM (1.8-8.9); NEUTROPHILS % (AUTO) 88.6 % (43.0-81.0); PLATELET COUNT (AUTO) 779 /CMM (150-450); RDW COEFFICIENT OF VARIATION 19.6 (11.5-15.0); WHITE BLOOD COUNT (AUTO) 21.8 K/uL (4.3-11.0)
[2017-07-04 06:51] LABS: CALCIUM, SERUM 7.8 mg/dL (8.5-10.1); CARBON DIOXIDE 21 mmol/L (21-32); CHLORIDE 108 mmol/L (98-107); GLUCOSE 103 mg/dL (74-106); MAGNESIUM 1.8 mg/dL (1.8-2.4); PHOSPHORUS 3.1 mg/dL (2.5-4.9); POTASSIUM 4.2 mmol/L (3.5-5.1); SODIUM SERUM 136 mmol/L (136-145); UREA NITROGEN, BLOOD 5 mg/dL (7-18)
--- NOTE | 2017-07-04 07:05 | NUR ---
MS/RN NOTES PT. IS LYING IN BED. AWAKE, ALERT AND ORIENTED X2-3. BREATHING EVEN AND UNLABORED ON ROOM AIR. NO SOB, RESPIRATORY DISTRESS OR COMPLAINTS OF PAIN NOTED AT THIS TIME. PT. WITH RIGHT FOREARM 22 GAUGE PERIPHERAL IV PRESENT, PATENT AND INTACT ADMINISTERING TO PT. D5 1/2 NS WITH 20 MEQ KCL @ 100ML/HR. PT. WITH ABDOMINAL DRESSING PRESENT, CLEAN, DRY AND INTACT. NO DRAINAGE OR BLEEDING NOTED. PT. WITH PREVIOUS RIGHT ABDOMINAL DENISE SITE DRESSING PRESENT, CLEAN, DRY AND INTACT. NO BLEEDING OR DRAINAGE NOTED. ALL PT. NEEDS MET. ALL DUE MEDICATIONS GIVEN. BED LOCKED AND IN LOWEST POSITION, SIDE RAILS UP X3, CALL LIGHT WITHIN REACH, WILL ENDORSE TO DAYSHIFT NURSE FOR CONTINUITY OF CARE.
--- NOTE | 2017-07-04 07:20 | NUR ---
RN OPENING NOTES PT. IS IN BED SLEEPING. BREATHING UNLABORED, AND EVENLY ON ROOM AIR. NO S/S OF ACUTE DISTRESS. IV FLUIDS RUNNING AT 75 ML/HR. BED IS IN LOWEST, AND LOCKED POSITION. 2 SIDE RAILS UP, AND CALL LIGHT WITHIN REACH. WILL CONTINUE TO ASSESS AND MONITOR. Addendum: 07/04/17 at 0829 by MARIAJOSE CAREY RN ERROR NOTE ABOVE. NEW OPENING NOTES RN OPENING NOTES NPO EXCEPT MEDS SIGN POSTED OUTSIDE PT.'S ROOM. PT. IS IN BED AWAKE, A&OX2-3, FORGETFUL. BREATHING UNLABORED, AND EVENLY ON ROOM AIR. NO S/S OF ACUTE DISTRESS. IV FLUIDS RUNNING AT 100 ML/HR. BED IS IN LOWEST, AND LOCKED POSITION. 2 SIDE RAILS UP, AND INSTRUCTED PT. TO USE CALL LIGHT FOR ASSISTANCE. ALL NEEDS MET. WILL CONTINUE TO ASSESS AND MONITOR.
[2017-07-04 08:00] VITALS: BP 117/78
[2017-07-04 09:31] LABS: BAND % (MANUAL) 2 % (0.0-5.0); LYMPHOCYTES % (MANUAL) 11 % (16-48); MONOCYTES % (MANUAL) 7 % (0-11.0); NEUTROPHILS % (MANUAL) 80 (42-76)
[2017-07-04] MEDS: PANTOPRAZOLE 40 MG VIAL IV SCH (09:42)
[2017-07-04] MEDS: LACTOBACILLUS RHAMNOSUS GG 1 EACH CAP.SPRINK PO SCH ×2 (09:42→17:50)
[2017-07-04] MEDS: PAROXETINE HCL 10 MG TABLET PO SCH (09:42)
[2017-07-04] MEDS: Z GUARD REMEDY 2 OZ OINT TP SCH (09:43)
[2017-07-04] MEDS: SULFAMETH/TRIMETH 800/160 MG 1 UDTAB TABLET PO SCH ×2 (09:44→21:28)
[2017-07-04] MEDS: ENOXAPARIN SODIUM 40 MG/0.4 ML DISP.SYRIN SQ SCH (09:46)
[2017-07-04 16:00] VITALS: BP 116/71
[2017-07-04 16:40] VITALS: BP 116/71
--- NOTE | 2017-07-04 16:41 | NUR ---
RN NOTES WOUND CARE, AND CLEAN DRY DRESSING APPLIED PER MD ORDERS. PT. TOLERATED WELL WITHOUT COMPLICATIONS.
[2017-07-04] MEDS: CEFTRIAXONE 1 G in IV D5W 50 ML IV SCH (17:21)
--- NOTE | 2017-07-04 18:51 | NUR ---
RN CLOSING NOTES FAMILY IS AT BEDSIDE. PT. IS IN BED AWAKE, A&OX2, FORGETFUL, AND EPISODES OF CONFUSION. BREATHING UNLABORED, AND EVENLY ON ROOM AIR. NO S/S OF ACUTE DISTRESS. IV FLUIDS RUNNING AT 100 ML/HR. DVT PUMPS ARE ON BOTH LEGS WITH A BOOT ON PT.'S LEFT FOOT. BOTH FEET ARE OFFLOADING. BED IS IN LOWEST, AND LOCKED POSITION. 3 SIDE RAILS UP, BED ALARM ON, AND CALL LIGHT WITHIN REACH. WILL CONTINUE TO ASSESS AND MONITOR.
--- NOTE | 2017-07-04 19:40 | NUR ---
MS RN OPENING NOTES PT IS IN BED ALERT AND AWAKE WITH FAMILY AT BEDSIDE. PT IS NOW ON CLEAR LIQUID DIET. BREATHING EVENLY AND UNLABORED ON RA. NO SIGNS OF SOB OR DISTRESS. IV FLUIDS RUNNING AT 100 ML/HR. BED IS IN LOW AND LOCKED POSITION, CALL LIGHT WITHIN REACH. WILL CONTINUE TO MONITOR.
[2017-07-04 20:00] VITALS: BP 143/63
[2017-07-04 22:00] VITALS: BP 143/63
[2017-07-05] MEDS: METOCLOPRAMIDE HCL 10 MG/2 ML VIAL IV SCH ×4 (01:07→17:06)
[2017-07-05] MEDS: METRONIDAZOLE 500MG/ NS 100ML 500 MG in PREMIX 1 EA IV SCH ×3 (01:08→16:57)
--- NOTE | 2017-07-05 06:46 | NUR ---
MS RN CLOSING NOTES PT IS IN BED RESTING, NO SIGNS OF SOB OR DISTRESS. BREATHING EVENLY AND UNLABORED ON RA. IV ACCESS IS INTACT AND PATENT, FLUIDS INFUSING. DRESSING CHANGES WERE DONE. NO ACUTE CHANGES THROUGHOUT THE SHIFT. BED IS IN LOW AND LOCKED POSITION. CALL LIGHT IS WITHIN REACH. WILL ENDORSE TO DAYSHIFT
--- NOTE | 2017-07-05 07:40 | NUR ---
RN OPENING NOTES RECEIVED PT IN BED, AWAKE, VERBALLY RESPONSIVE, NO C/O PAIN, NO SOB NOTED, NO S/S OF ACUTE DISTRESS. NOTED WITH IV D5 1/2 NS WITH 20 MEQ KCL INFUSING WELL @ 100ML/HR ON PERIPHERAL LINE ON RFA.ALL PATIENT'S NEEDS ATTENDED TO. WILL CONTINUE TO MONITOR PT.
[2017-07-05 07:49] LABS: BASOPHILS % (AUTO) 0.2 % (0.0-2.0); EOSINOPHILS # (AUTO) 0.2 /CMM (0.0-0.7); EOSINOPHILS % (AUTO) 1.2 % (0.0-6.0); HEMATOCRIT 27 % (33-45); HEMOGLOBIN 8.6 g/dL (11.5-14.8); LYMPHOCYTES # (AUTO) 1.4 /CMM (0.8-4.8); LYMPHOCYTES % (AUTO) 9.3 % (20.0-44.0); MEAN CORPUSCULAR HEMOGLOBIN 25 PG (26.0-33.0); MEAN CORPUSCULAR HGB CONC 33 g/dl (31.0-36.0); MEAN CORPUSCULAR VOLUME 76 fL (82-100); MONOCYTES # (AUTO) 0.9 /CMM (0.1-1.30); MONOCYTES % (AUTO) 6.1 % (2.0-12.0); NEUTROPHILS # (AUTO) 12.3 /CMM (1.8-8.9); NEUTROPHILS % (AUTO) 83.2 % (43.0-81.0); PLATELET COUNT (AUTO) 748 /CMM (150-450); RDW COEFFICIENT OF VARIATION 20.7 (11.5-15.0); RED BLOOD CELL COUNT(AUTO) 3.47 MIL/uL (4.0-5.2); WHITE BLOOD COUNT (AUTO) 14.8 K/uL (4.3-11.0)
[2017-07-05 08:00] VITALS: BP 111/58
[2017-07-05 08:03] LABS: CALCIUM, SERUM 8.3 mg/dL (8.5-10.1); CARBON DIOXIDE 20 mmol/L (21-32); CHLORIDE 108 mmol/L (98-107); GLUCOSE 119 mg/dL (74-106); POTASSIUM 4.1 mmol/L (3.5-5.1); SODIUM SERUM 137 mmol/L (136-145); UREA NITROGEN, BLOOD 5 mg/dL (7-18)
[2017-07-05] MEDS: PANTOPRAZOLE 40 MG VIAL IV SCH (09:00)
[2017-07-05] MEDS: SULFAMETH/TRIMETH 800/160 MG 1 UDTAB TABLET PO SCH ×2 (09:00→21:48)
[2017-07-05] MEDS: PAROXETINE HCL 10 MG TABLET PO SCH (09:01)
[2017-07-05] MEDS: LACTOBACILLUS RHAMNOSUS GG 1 EACH CAP.SPRINK PO SCH ×2 (09:01→17:06)
[2017-07-05] MEDS: Z GUARD REMEDY 2 OZ OINT TP SCH (09:02)
[2017-07-05] MEDS: ENOXAPARIN SODIUM 40 MG/0.4 ML DISP.SYRIN SQ SCH (09:16)
[2017-07-05] MEDS: IV D5/0.45 NACL W/20 MEQ KCL 1L IV PRN ×2 (09:20)
[2017-07-05 10:00] VITALS: BP 114/60
--- NOTE | 2017-07-05 10:44 | NUR ---
RN NOTES PATIENT SEEN AND EXAMINED BY DR. KONG, WITH NEW ORDER: PATIENT CLEAR TO DISCHARGE TODAY AND RETURN TO MD'S OFFICE IN 1 WEEK FOR STAPLE REMOVAL. ALL ORDERS NOTED AND CARRIED OUT.
[2017-07-05 16:00] VITALS: BP 116/52
[2017-07-05] MEDS: CEFTRIAXONE 1 G in IV D5W 50 ML IV SCH (16:22)
--- NOTE | 2017-07-05 18:42 | NUR ---
RN CLOSING NOTES PATIENT UP IN BED, NOTED WITH NO FACIAL GRIMACING, BREATHING EVEN AND UNLABORED, NO SOB NOTED. CONTINUES TO RECEIVE IV HYDRATION ORDERED @ 100ML/HR VIA PERIPHERAL LINE ON RFA G22. ALL PATIENT'S NEEDS ATTENDED TO. CALL LIGHT PLACED WITHIN EASY REACH. PLACED BED IN LOW POSITION, LOCKED IN PLACE.
--- NOTE | 2017-07-05 20:00 | NUR ---
MS RN OPENING NOTES: RECEIVED PATIENT IN BED, AWAKE, PATIENT APPEARS PLEASANTLY CONFUSED, HOWEVER ABLE TO MAKE NEEDS KNOWN. PATIENT HAS AN IVF ON RIGHT FA G#22 D5 1/2 NS WITH 20 MEQ KCL RUNNING AT 100 ML/HR. NO SIGNS OF REDNESS OR PHLEBITIS ON SITE NOTED THIS TIME. PATIENT WITH SCD ON GOING. NO FURTHER COMPLAINS OF PAIN OR DISCOMFORT DURING ASSESSMENT. WILL CONTINUE TO MONITOR PATIENT.
[2017-07-05 20:35] VITALS: BP 113/42
[2017-07-05 22:00] VITALS: BP 116/57
--- NOTE | 2017-07-06 | NUR ---
MS RN: PATIENT ON BED, ASLEEP. NO COMPLAINS OR DISCOMFORT NOTED THIS TIME.
[2017-07-06] MEDS: METOCLOPRAMIDE HCL 10 MG/2 ML VIAL IV SCH ×4 (00:16→18:03)
[2017-07-06] MEDS: IV D5/0.45 NACL W/20 MEQ KCL 1L IV PRN ×4 (01:19→13:36)
[2017-07-06] MEDS: METRONIDAZOLE 500MG/ NS 100ML 500 MG in PREMIX 1 EA IV SCH ×3 (01:25→18:15)
--- NOTE | 2017-07-06 07:00 | NUR ---
MS RN CLOSING NOTES: PATIENT IN BED ASLEEP WITH IVF ON GOING. NO COMPLAINS OF PAIN OR DISCOMFORT THIS TIME. NO FACIAL GRIMACE NOTED. WILL, ENDORSE PATIENT TO DAY SHIFT NURSE FOR CONTINUITY OF CARE.
[2017-07-06 07:03] LABS: BASOPHILS % (AUTO) 0.4 % (0.0-2.0); EOSINOPHILS # (AUTO) 0.1 /CMM (0.0-0.7); EOSINOPHILS % (AUTO) 1.2 % (0.0-6.0); HEMATOCRIT 25 % (33-45); HEMOGLOBIN 8.3 g/dL (11.5-14.8); LYMPHOCYTES # (AUTO) 1.2 /CMM (0.8-4.8); LYMPHOCYTES % (AUTO) 12.2 % (20.0-44.0); MEAN CORPUSCULAR HEMOGLOBIN 25 PG (26.0-33.0); MEAN CORPUSCULAR HGB CONC 33 g/dl (31.0-36.0); MEAN CORPUSCULAR VOLUME 76 fL (82-100); MONOCYTES # (AUTO) 0.7 /CMM (0.1-1.30); MONOCYTES % (AUTO) 6.9 % (2.0-12.0); NEUTROPHILS % (AUTO) 79.3 % (43.0-81.0); PLATELET COUNT (AUTO) 632 /CMM (150-450); RDW COEFFICIENT OF VARIATION 20.8 (11.5-15.0); WHITE BLOOD COUNT (AUTO) 10.1 K/uL (4.3-11.0)
[2017-07-06 07:28] LABS: CALCIUM, SERUM 8.1 mg/dL (8.5-10.1); CARBON DIOXIDE 21 mmol/L (21-32); CHLORIDE 109 mmol/L (98-107); GLUCOSE 107 mg/dL (74-106); MAGNESIUM 1.9 mg/dL (1.8-2.4); PHOSPHORUS 3.7 mg/dL (2.5-4.9); SODIUM SERUM 139 mmol/L (136-145); UREA NITROGEN, BLOOD 4 mg/dL (7-18)
[2017-07-06 08:00] VITALS: BP 129/61
--- NOTE | 2017-07-06 08:00 | NUR ---
RN NOTES RECEIVED PATIENT IN THE ROOM, A/O X2/3, PATIENT HAS NO RESPIRATORY DISTRESS, NO C/O PAIN AT THIS TIME, PATIENT ON IV LINE RIGHT FOREARM INFUSING D5 1/2 NS POTASSIUM CHLORIDE AT 100 ML/HR, SCHEDULED MEDICATION ADMINISTERED, V/S TAKEN, PATIENT EATING, ASSIST PATIENT TURN AND REPOSITION Q 2 HR, CALL LIGHT WITHIN TO REACH. CONTINUED MONITORING.
[2017-07-06] MEDS: PANTOPRAZOLE 40 MG VIAL IV SCH (10:32)
[2017-07-06] MEDS: LACTOBACILLUS RHAMNOSUS GG 1 EACH CAP.SPRINK PO SCH ×2 (10:33→17:52)
[2017-07-06] MEDS: PAROXETINE HCL 10 MG TABLET PO SCH (10:33)
[2017-07-06] MEDS: SULFAMETH/TRIMETH 800/160 MG 1 UDTAB TABLET PO SCH ×2 (10:33→21:59)
[2017-07-06] MEDS: Z GUARD REMEDY 2 OZ OINT TP SCH (10:34)
[2017-07-06] MEDS: ENOXAPARIN SODIUM 40 MG/0.4 ML DISP.SYRIN SQ SCH (10:42)
--- NOTE | 2017-07-06 12:00 | NUR ---
RN NOTES DRESSING CHANGED, NEW IV LINE ON LEFT FOREARM # 22 GAUGE, INTACT, ABDOMINAL DRESSING CHANGED, ASSIST TURN AND REPOSITION, ENCOURAGED TO INCREASE FLUID INTAKE, CALL LIGHT WITHIN TO REACH, CONTINUED MONITORING.
[2017-07-06 13:00] VITALS: BP 122/50
[2017-07-06 16:00] VITALS: BP 122/50
--- NOTE | 2017-07-06 17:11 | NUR ---
RN NOTES PATIENT RESTING IN THE BED, NO ACUTE DISTRESS, CONTINUED MONITORING. BED ALARM ON.
[2017-07-06] MEDS: CEFTRIAXONE 1 G in IV D5W 50 ML IV SCH (17:53)
--- NOTE | 2017-07-06 18:58 | NUR ---
RN NOTES PATIENT IN THE ROOM, NO ACUTE DISTRESS, QUIET, NO C/O PAIN AT THIS TIME, ASSIST TURN AND REPOSITION Q 2 HR. INFUSING IV ON LEFT FOREARM INTACT, REDNESS PERINEAL AREA APPLIED Z-GUARD, NEEDS ATTENDED AND ANTICIPATED, V/S STABLE, MED COMPLIANT. CALL LIGHT WITHIN TO REACH, CONTINUED MONITORING, ENDORSED ONCOMING NURSE FOR CONTINUATION OF CARE.
--- NOTE | 2017-07-06 19:45 | NUR ---
MS ANIMAL HUMANE AGENT SUPERVISOR INITIAL NOTES' RECEIVED REPORT FROM AM NURSE AND CHECKED THE PT. SHE'S LYING IN BED ON SEMI FOWLERS POSITION WITH SIDE RAILS X2 UP . SHE 'S AWAKE WHILE WATCHING TV AT THE SAME TIME. DENIES ANY PAIN OR ANY DISCOMFORT. ABDOMEN WITH DRESSING DRY AND INTACT. STILL WITH IVF OF D51/2 NS WITH 20MEQ KCL AT 100ML/HR INFUSING AT THIS TIME ON HER LEFT FOREARM PATENT AND INTACT. RE-ORIENTED HOW TO USED THE CALL LIGHT AND AT THE SAME TIME ENCOURAGE HER TO USE IF SHE NEEDS SOME HELP OR ASSISTANCE. KEPT HER WARM AND COMFORTABLE AT ALL TIMES. WILL CONTINUE TO MONITOR. PLACE CALL LIGHT AT REACH.
[2017-07-06 20:48] VITALS: BP 116/55
[2017-07-06 22:00] VITALS: BP 116/55
--- NOTE | 2017-07-07 | NUR ---
DIGITAL MEDIA DIRECTOR/NOTES PT SLEEPING COMFORTABLY IN BED WITHOUT ANY ACUTE DISTRESS NOTED. IVF STILL INFUSING ,KEPT HER WARM AND COMFORTABLE AT ALL TIMES. PLACE CALL LIGHT AT REACH. WILL CONTINUE TO MONITOR.
[2017-07-07] MEDS: METOCLOPRAMIDE HCL 10 MG/2 ML VIAL IV SCH ×4 (01:15→18:36)
[2017-07-07] MEDS: METRONIDAZOLE 500MG/ NS 100ML 500 MG in PREMIX 1 EA IV SCH ×2 (01:15→09:20)
[2017-07-07] MEDS: IV D5/0.45 NACL W/20 MEQ KCL 1L IV PRN ×4 (04:30→19:16)
[2017-07-07 05:18] VITALS: BP 120/70
--- NOTE | 2017-07-07 05:19 | NUR ---
MS SADIQ NOTES PT WOKE UP AND SPONGES BATH RENDERED WELL WOUND CARE TREATMENT DONE. PT DENIES ANY PAIN OR ANY DISCOMFORT. REPOSITION HER FOR COMFORT. IVF STILL INFUSING , NO REDNESS NOTED. KEPT HER WARM AND COMFORTABLE AT ALL TIMES. PLACE CALL LIGHT AT REACH. WILL CONTINUE TO MONITOR.
--- NOTE | 2017-07-07 07:30 | NUR ---
MS LABORATORY PHLEBOTOMIST CLOSING NOTES PT AWAKE AND ALERT AT THIS TIME, WATCHING TV, DENIES ANY PAIN OR ANY DISCOMFORT. IVF REMAIN INFUSING NO REDNESS NOTED. ALL DUE MEDS GIVEN AND ALL NEEDS MET. STABLE MATTHEW THE NIGHT AND SLEPT WELL. ENDORSE TO AM NURSE FOR CONTINUITY OF CARE.PLACE CALL LIGHT AT REACH.
[2017-07-07 08:00] VITALS: BP 127/50
--- NOTE | 2017-07-07 08:00 | NUR ---
MS MILAN AM NOTES RECEIVED PATIENT IN THE ROOM, A/O X2/3, PATIENT HAS NO RESPIRATORY DISTRESS, NO C/O PAIN AT THIS TIME, PATIENT ON IV LINE LEFT FOREARM INFUSING D5 1/2 NS +20 MEQ POTASSIUM CHLORIDE AT 100 ML/HR, SCHEDULED MEDICATION ADMINISTERED, V/S TAKEN, PATIENT EATING, ASSIST PATIENT TURN AND REPOSITION Q 2 HR, CALL LIGHT WITHIN TO REACH. CONTINUED MONITORING.
[2017-07-07] MEDS: PANTOPRAZOLE 40 MG VIAL IV SCH (09:18)
[2017-07-07] MEDS: PAROXETINE HCL 10 MG TABLET PO SCH (09:18)
[2017-07-07] MEDS: SULFAMETH/TRIMETH 800/160 MG 1 UDTAB TABLET PO SCH ×2 (09:18→21:28)
[2017-07-07] MEDS: LACTOBACILLUS RHAMNOSUS GG 1 EACH CAP.SPRINK PO SCH ×2 (09:18→17:37)
[2017-07-07] MEDS: ENOXAPARIN SODIUM 40 MG/0.4 ML DISP.SYRIN SQ SCH (09:20)
[2017-07-07] MEDS: Z GUARD REMEDY 2 OZ OINT TP SCH (10:22)
[2017-07-07 16:00] VITALS: BP 127/50
[2017-07-07] MEDS: CEFTRIAXONE 1 G in IV D5W 50 ML IV SCH (17:37)
[2017-07-07] MEDS: METRONIDAZOLE 500 MG TABLET PO SCH (17:37)
[2017-07-07 20:00] VITALS: BP 115/49
--- NOTE | 2017-07-07 20:00 | NUR ---
MS GIS GEOGRAPHER INITIAL NOTES SEEN PT IN BED RESTING WITH EYES CLOSED BUT AROUSABLE TO TOUCH, DENIES ANY PAIN OR ANY DISCOMFORT. DRESSING ON HER ABDOMEN STILL DRY AND INTACT. IVF D51/2 NS WITH 20MEQ INFUSING AT THIS TIME ON HER LEFT FOREARM PATENT AND INTACT. KEPT HER WARM AND COMFORTABLE AT ALL TIMES. WILL CONTINUE TO MONITOR. PLACE CALL LIGHT AT REACH.
[2017-07-07 21:00] VITALS: BP 115/49
--- NOTE | 2017-07-08 | NUR ---
MS CORRECTIONAL OFFICER NOTES PT SLEEPING AT THIS TIME WITHOUT ANY ACUTE DISTRESS NOTED, SHE SEEMS COMFORTABLE , NO SIGNS OF ANY PAIN OR ANY DISCOMFORT. REGLAN IVP ADMINISTERED BY ANOTHER NURSE. IVF STILL INFUSING. WILL CONTINUE TO MONITOR.PLACE CALL LIGHT AT REACH.
[2017-07-08] MEDS: METOCLOPRAMIDE HCL 10 MG/2 ML VIAL IV SCH ×4 (00:15→17:22)
[2017-07-08] MEDS: METRONIDAZOLE 500 MG TABLET PO SCH ×3 (02:07→16:41)
[2017-07-08] MEDS: IV D5/0.45 NACL W/20 MEQ KCL 1L IV PRN ×2 (05:43)
--- NOTE | 2017-07-08 06:57 | NUR ---
MS PAVING BED MAKER CLOSING NOTES PT BACK TO REST AFTER MORNING CARE DONE. STABLE MATTHEW THE NIGHT AND SLEPT WELL.RESPIRATION EVEN AND NON-LABORED. NOT IN ANY ACUTE DISTRESS NOTED. ALL DUE MEDS GIVEN AND ALL NEEDS MET. IVF STILL INFUSING AND KEPT HER WARM AND COMFORTABLE AT ALL TIMES. PLACE CALL LIGHT AT REACH. ENDORSE TO AM NURSE FOR CONTINUITY OF CARE.
[2017-07-08 08:00] VITALS: BP 126/55
--- NOTE | 2017-07-08 08:01 | NUR ---
MS RN OPENING NOTES PATIENT SLEEPING, AROUSABLE , RESPONSIVE TO VERBAL STIMULI, HOB ELEVATED. BED IN LOW POSITION, LOCKED. SIDERAILS UP X2. NO SOB NOTED IN RA. NO ACUTE DISTRESS NOTED. RESPIRATIONS EVEN AND UNLABORED. IV STILL INFUSING, NO REDNESS, NO S/SX OF INFILTRATION AT THE SITE NOTED. CALL LIGHT PLACED WITHIN REACH. WILL CONTINUE TO MONITOR ACCORDINGLY.
[2017-07-08 09:00] VITALS: BP 126/55
[2017-07-08] MEDS: SULFAMETH/TRIMETH 800/160 MG 1 UDTAB TABLET PO SCH (09:05)
[2017-07-08] MEDS: PANTOPRAZOLE 40 MG VIAL IV SCH (09:05)
[2017-07-08] MEDS: LACTOBACILLUS RHAMNOSUS GG 1 EACH CAP.SPRINK PO SCH ×2 (09:05→16:41)
[2017-07-08] MEDS: Z GUARD REMEDY 2 OZ OINT TP SCH (09:06)
[2017-07-08] MEDS: PAROXETINE HCL 10 MG TABLET PO SCH (09:06)
[2017-07-08 09:13] LABS: FERRITIN 89 ng/mL (8-388); IRON, SERUM 11 ug/dl (50-175); TOTAL IRON BINDING CAPACITY 155 ug/dl (250-450)
[2017-07-08 16:00] VITALS: BP 133/59
[2017-07-08] MEDS: CEFTRIAXONE 1 G in IV D5W 50 ML IV SCH (16:41)
[2017-07-08] MEDS ORDERED: FERROUS SULFATE (325 MG) 325 MG/TAB TABLET PO SCH (17:00)
--- NOTE | 2017-07-08 18:00 | NUR ---
[facility] CLOSING NOTES PATIENT DISCHARGED TO [facility] AND GAVE REPORT TO LEXIE MILAN TEXTILE MACHINE OPERATOR, ACCOMPANIED BY 2 EMT PERSONNEL AND CLARIBEL SON IN LAW IN STABLE CONDITION. NO SOB NOTED IN RA. NO ACUTE DISTRESS NOTED. RESPIRATIONS EVEN AND UNLABORED. IV ON LFA G22 REMAINS INTACT, PATENT FOR CONTINUATION OF ANTIBIOTIC IV THERAPY, NOTED NO REDNESS, NO S/SX OF INFILTRATION AT THE SITE . DENIED ANY PAIN, NO FACIAL GRIMACING NOTED. ALL BELONGING ACCOUNTED FOR. DISCHARGE INSTRUCTIONS GIVEN TO THE PATIENT.
[2017-07-09] MEDS ORDERED: ENOXAPARIN SODIUM 40 MG/0.4 ML DISP.SYRIN SQ SCH (09:00)
== END 2017-07-08 18:00 | DRG 853 ==
LOC: ER 02:04 → TELE 04:16 → MED 08:41
PROVIDERS: ADMIT Internal Medicine; ATTEND Nurse Practitioner Acute Care
PROC: 30233N1 Transfusion of Nonautologous Red Blood Cells into Peripheral Vein, Percutaneous Approach (ICD-10-PCS; 2017-06-30)
PROC: 0DTF0ZZ Resection of Right Large Intestine, Open Approach (ICD-10-PCS; principal; 2017-06-30 08:40)
PROC: 0DN84ZZ Release Small Intestine, Percutaneous Endoscopic Approach (ICD-10-PCS; 2017-07-02)
DX: A41.9 Sepsis, unspecified organism (principal); E43 Unspecified severe protein-calorie malnutrition; N17.0 Acute kidney failure with tubular necrosis; K63.1 Perforation of intestine (nontraumatic); K56.50 Intestinal adhesions [bands], unspecified as to partial versus complete obstruction; C18.0 Malignant neoplasm of cecum; D63.8 Anemia in other chronic diseases classified elsewhere; K63.2 Fistula of intestine; G35 Multiple sclerosis; D62 Acute posthemorrhagic anemia; N39.0 Urinary tract infection, site not specified; N13.2 Hydronephrosis with renal and ureteral calculous obstruction; I70.0 Atherosclerosis of aorta; M19.90 Unspecified osteoarthritis, unspecified site; E87.6 Hypokalemia; K57.30 Diverticulosis of large intestine without perforation or abscess without bleeding; Z85.038 Personal history of other malignant neoplasm of large intestine
CPT/HCPCS: 36415; 71010-TC; 74000-TC; 80048-TC; 80053-TC; 80076-TC; 81000-TC; 82728-TC; 83540-TC; 83605-TC; 83735-TC; 84100-TC; 84484-TC; 85025-TC; 85730-TC; 86850-TC; 86880-TC; 86921-TC; 87040-TC; 87070-TC; 87081-TC; 87086-TC; 87186-TC; 88305-TC; 88309-TC; 92611-TC; A4216; A4606; A6209; A6253; A6402; A6403; C9113; J0690; J0696; J1650; J2270; J2543; J2704; J2765; J3010; J3370; J3480; J3490; J7030; J7050; J7060; P9016-BL; Q9967; Z7610

== ENCOUNTER 2017-07-28 13:13 | Inpatient (IN) | payer MEDICARE, MEDICAID ==
[~2017-07-28] VITALS: Ht 162.6 cm; Wt 56.7 kg
[~2017-07-28 13:13] MED LIST: ACET-868 PO; HYDR-552 PO; MAGN2400 PO; PARO10TA86 PO
[2017-07-28 13:30] VITALS: BP 128/70
[2017-07-28 13:40] LABS: BASOPHILS # (AUTO) 0.1 /CMM (0.0-0.2); BASOPHILS % (AUTO) 0.4 % (0.0-2.0); EOSINOPHILS % (AUTO) 0.1 % (0.0-6.0); HEMATOCRIT 33 % (33-45); HEMOGLOBIN 10.7 g/dL (11.5-14.8); LYMPHOCYTES # (AUTO) 1.1 /CMM (0.8-4.8); LYMPHOCYTES % (AUTO) 3.6 % (20.0-44.0); MEAN CORPUSCULAR HEMOGLOBIN 23 PG (26.0-33.0); MEAN CORPUSCULAR HGB CONC 32 g/dl (31.0-36.0); MEAN CORPUSCULAR VOLUME 72 fL (82-100); MONOCYTES # (AUTO) 0.7 /CMM (0.1-1.30); MONOCYTES % (AUTO) 2.4 % (2.0-12.0); NEUTROPHILS # (AUTO) 28.4 /CMM (1.8-8.9); NEUTROPHILS % (AUTO) 93.5 % (43.0-81.0); RDW COEFFICIENT OF VARIATION 19.2 (11.5-15.0); RED BLOOD CELL COUNT(AUTO) 4.59 MIL/uL (4.0-5.2)
[2017-07-28 13:42] LABS: PLATELET COUNT (AUTO) 926 /CMM (150-450); WHITE BLOOD COUNT (AUTO) 30.3 K/uL (4.3-11.0)
[2017-07-28 13:56] LABS: CALCIUM, SERUM 9.7 mg/dL (8.5-10.1); CARBON DIOXIDE 22 mmol/L (21-32); CHLORIDE 103 mmol/L (98-107); CREATININE 1.3 mg/dL (0.6-1.3); GLUCOSE 128 mg/dL (74-106); POTASSIUM 4.6 mmol/L (3.5-5.1); SODIUM SERUM 137 mmol/L (136-145); UREA NITROGEN, BLOOD 21 mg/dL (7-18)
[2017-07-28 13:59] LABS: INR 1.05 (0.87-1.13); PROTHROMBIN TIME 10.9 SECS (9.5-12.7)
[2017-07-28 14:04] LABS: TROPONIN I < 0.017 ng/mL (0.00-0.056)
[2017-07-28 14:09] LABS: ALANINE AMINOTRANSFERASE 8 U/L (12-78); ALBUMIN 2.4 g/dL (3.4-5.0); ALKALINE PHOSPHATASE 136 U/L (46-116); ASPARTATE AMINOTRANSFERASE 16 U/L (15-37); B-TYPE NATRIURETIC PEPTIDE 684 PG/ML (0-125); BILIRUBIN,DIRECT 0.4 mg/dL (0.0-0.2); BILIRUBIN,TOTAL 0.9 mg/dL (0.2-1.0); TOTAL PROTEIN, SERUM 8.9 g/dL (6.4-8.2)
[2017-07-28 14:53] VITALS: BP 134/61
[2017-07-28] MEDS ORDERED: IV NS 0.9% 1,000 ML BAG IV ONE (15:00)
[2017-07-28 15:09] LABS: LYMPHOCYTES % (MANUAL) 12 % (16-48); MONOCYTES % (MANUAL) 2 % (0-11.0); NEUTROPHILS % (MANUAL) 86 (42-76)
[2017-07-28] MEDS ORDERED: ACET-868 PO (15:46)
[2017-07-28] MEDS ORDERED: ZOLP5TAB2 PO (15:46)
[2017-07-28] MEDS ORDERED: CRAN425C6 PO (15:46)
[2017-07-28] MEDS ORDERED: MULT-213 PO (15:46)
[2017-07-28] MEDS ORDERED: ZINC220T PO (15:46)
[2017-07-28] MEDS ORDERED: PANT40TA2 PO (15:46)
[2017-07-28] MEDS ORDERED: ENOX40DI SQ (15:46)
[2017-07-28] MEDS ORDERED: HYDR-552 PO (15:46)
[2017-07-28] MEDS ORDERED: FERR-58 PO (15:46)
[2017-07-28] MEDS ORDERED: LACT100C2 PO (15:46)
[2017-07-28] MEDS ORDERED: AMIN30LI2 PO (15:46)
[2017-07-28] MEDS ORDERED: MAGN400O6 PO (15:46)
[2017-07-28] MEDS ORDERED: ONDA4TAB5 PO (15:46)
[2017-07-28] MEDS ORDERED: PARO-64 PO (15:46)
[2017-07-28] MEDS ORDERED: POTA20TA83 PO (15:46)
[2017-07-28] MEDS ORDERED: CRAN3875 PO (15:46)
[2017-07-28] MEDS ORDERED: DOCU-141 PO (15:46)
[2017-07-28] MEDS ORDERED: AZITHROMYCIN 500 MG in IV D5W 250 ML IV ONE (16:00)
[2017-07-28] MEDS ORDERED: CEFTRIAXONE 1GM BAG (ER ONLY) 50 ML IV ONE (16:00)
[2017-07-28 17:26] LABS: APPEARANCE,URINE Cloudy (CLEAR); BILIRUBIN,URINE SMALL (NEGATIVE); BLOOD, URINE Large Ery/uL (NEGATIVE); COLOR,URINE Yellow (YELLOW); KETONES,URINE 15 (NEGATIVE); LEUKOCYTE ESTERASE ,URINE Large (NEGATIVE); NITRITE, URINE Positive (NEGATIVE); PH,URINE 5.5 (5.0-8.0); PROTEIN,URINE 100 mg/dl (NEGATIVE); UGLUCOSE Negative (NEGATIVE)
[2017-07-28 17:31] VITALS: BP 140/66
[2017-07-28 17:41] LABS: BACTERIA,URINE Many /HPF (None Seen); RBC,URINE 21-50 /HPF (0-2); SQUAMOUS EPITHELIAL CELL,UR Moderate /HPF (None Seen); WBC,URINE TOO NUMEROUS TO COUN /HPF (0-3)
[2017-07-28 20:00] VITALS: BP 156/67
[2017-07-28] MEDS: PROSOURCE / PROSTAT (PYXIS) 30 ML UDC PO SCH (21:00)
[2017-07-28] MEDS ORDERED: Z GUARD REMEDY 2 OZ OINT TP PRN (21:00)
[2017-07-28] MEDS ORDERED: MAGNESIUM HYDROXIDE 30 ML UDC PO PRN ×2 (21:00)
[2017-07-28] MEDS ORDERED: ACETAMINOPHEN 325 MG TABLET PO PRN ×2 (21:00)
[2017-07-28] MEDS ORDERED: MAG HYDROX/AL HYDROX/SIMETH 30 ML UDC PO PRN (21:00)
[2017-07-28] MEDS ORDERED: HYDROCODONE/APAP 5/325MG 1 EACH TABLET PO SCH (21:00)
[2017-07-28] MEDS ORDERED: ONDANSETRON 4 MG TAB.RAPDIS PO PRN (21:00)
[2017-07-28] MEDS ORDERED: HYDROCODONE/APAP 5/325MG 1 EACH TABLET PO PRN (21:00)
[2017-07-28] MEDS ORDERED: ONDANSETRON HCL/PF 4 MG/2 ML VIAL IVP PRN (21:00)
[2017-07-28 21:43] LABS: CALCIUM, SERUM 8.8 mg/dL (8.5-10.1); CARBON DIOXIDE 20 mmol/L (21-32); CHLORIDE 108 mmol/L (98-107); CREATININE 1.1 mg/dL (0.6-1.3); GLUCOSE 143 mg/dL (74-106); POTASSIUM 4.4 mmol/L (3.5-5.1); SODIUM SERUM 141 mmol/L (136-145); UREA NITROGEN, BLOOD 20 mg/dL (7-18)
[2017-07-28 21:49] LABS: ALANINE AMINOTRANSFERASE 11 U/L (12-78); ALKALINE PHOSPHATASE 117 U/L (46-116); ASPARTATE AMINOTRANSFERASE 22 U/L (15-37); BILIRUBIN,DIRECT 0.3 mg/dL (0.0-0.2); BILIRUBIN,TOTAL 0.5 mg/dL (0.2-1.0); TOTAL PROTEIN, SERUM 7.7 g/dL (6.4-8.2)
[2017-07-28] MEDS ORDERED: LEVOFLOXACIN 500 MG /D5W 100ML 100 ML IV ONE (23:21)
[2017-07-28] MEDS: LEVOFLOXACIN 500 MG /D5W 100ML 500 MG in PREMIX 1 EA IV SCH ×2 (23:22→23:37)
[2017-07-29] VITALS: BP 102/53
[2017-07-29] MEDS ORDERED: PIPERACILLIN /TAZOBACTAM 3.375 G VIAL IV ONE ×2 (00:08→05:47)
[2017-07-29] MEDS: PIPERACILLIN /TAZOBACTAM 3.375 G in IV D5W 50 ML IV SCH ×5 (00:15→23:52)
[2017-07-29] MEDS ORDERED: IV NS 0.9% 1,000 ML IV ONE (03:30)
[2017-07-29 04:00] VITALS: BP 92/48
[2017-07-29 06:42] LABS: EOSINOPHILS # (AUTO) 0.4 /CMM (0.0-0.7); EOSINOPHILS % (AUTO) 1.7 % (0.0-6.0); HEMATOCRIT 25 % (33-45); HEMOGLOBIN 8.3 g/dL (11.5-14.8); LYMPHOCYTES # (AUTO) 1.3 /CMM (0.8-4.8); MEAN CORPUSCULAR HEMOGLOBIN 24 PG (26.0-33.0); MEAN CORPUSCULAR HGB CONC 33 g/dl (31.0-36.0); MEAN CORPUSCULAR VOLUME 73 fL (82-100); MONOCYTES # (AUTO) 1.1 /CMM (0.1-1.30); NEUTROPHILS # (AUTO) 23.8 /CMM (1.8-8.9); NEUTROPHILS % (AUTO) 89.3 % (43.0-81.0); PLATELET COUNT (AUTO) 571 /CMM (150-450); RED BLOOD CELL COUNT(AUTO) 3.46 MIL/uL (4.0-5.2); WHITE BLOOD COUNT (AUTO) 26.7 K/uL (4.3-11.0)
[2017-07-29 07:09] LABS: CALCIUM, SERUM 8.8 mg/dL (8.5-10.1); CREATININE 1.1 mg/dL (0.6-1.3); GLUCOSE 116 mg/dL (74-106); MAGNESIUM 2.1 mg/dL (1.8-2.4); PHOSPHORUS 3.4 mg/dL (2.5-4.9); UREA NITROGEN, BLOOD 23 mg/dL (7-18)
[2017-07-29 07:15] LABS: CHOLESTEROL 68 mg/dL (<200); HDL CHOLESTEROL 21 mg/dL (40-60); LDL 25 mg/dL (0-99); TRIGLYCERIDES 100 mg/dL (30-150)
[2017-07-29 07:25] LABS: CARBON DIOXIDE 22 mmol/L (21-32); CHLORIDE 108 mmol/L (98-107); POTASSIUM 4.1 mmol/L (3.5-5.1); SODIUM SERUM 139 mmol/L (136-145)
[2017-07-29] MEDS: PANTOPRAZOLE 40 MG TABLET.DR PO SCH (07:30)
[2017-07-29 08:00] VITALS: BP 97/55
[2017-07-29] MEDS: LACTOBACILLUS RHAMNOSUS GG 1 EACH CAP.SPRINK PO SCH ×2 (08:54→17:00)
[2017-07-29] MEDS: DOCUSATE SODIUM 100 MG CAPSULE PO SCH ×2 (08:54→17:00)
[2017-07-29] MEDS: FERROUS SULFATE (325 MG) 325 MG/TAB TABLET PO SCH ×2 (08:54→17:00)
[2017-07-29] MEDS: POTASSIUM CHLORIDE 20 MEQ TAB.PRT.SR PO SCH (08:54)
[2017-07-29] MEDS: MULTIVIT, IRON, MIN NO. 8, FA 1 TAB PO SCH (08:55)
[2017-07-29] MEDS: PAROXETINE HCL 20 MG TABLET PO SCH (08:55)
[2017-07-29] MEDS: PROSOURCE / PROSTAT (PYXIS) 30 ML UDC PO SCH (08:55)
[2017-07-29] MEDS: ZINC SULFATE 220 MG CAPSULE PO SCH (08:55)
[2017-07-29] MEDS ORDERED: FEE PK DOSING 1 MIN EA MC ONE (08:57)
[2017-07-29] MEDS ORDERED: VANCOMYCIN 0.75 GM in IV D5W 250 ML IV SCH (09:00)
[2017-07-29] MEDS ORDERED: Medication Not On Formulary EA (Cran/Vitc/Mannose/Inulin/Brom (Uti-Stat Liquid) 30 ML) PO SCH (09:00)
[2017-07-29] MEDS ORDERED: Medication Not On Formulary EA (Cranberry Extract (Cranberry) 425 MG) PO SCH (09:00)
[2017-07-29] MEDS: ENOXAPARIN SODIUM 40 MG/0.4 ML DISP.SYRIN SQ SCH (09:06)
[2017-07-29 09:37] LABS: BAND % (MANUAL) 2 % (0.0-5.0); LYMPHOCYTES % (MANUAL) 6 % (16-48); MONOCYTES % (MANUAL) 4 % (0-11.0); NEUTROPHILS % (MANUAL) 88 (42-76)
[2017-07-29 12:00] VITALS: BP 90/51
[2017-07-29 16:00] VITALS: BP 93/51
[2017-07-29] MEDS: ZOLPIDEM TARTRATE 5 MG TABLET PO SCH (17:11)
[2017-07-29] MEDS: IV NS 0.9% 1,000 ML IV PRN (18:02)
[2017-07-29 20:00] VITALS: BP 93/45
[2017-07-29] MEDS: VANCOMYCIN 500 MG in IV D5W 100 ML IV SCH (21:10)
[2017-07-29] MEDS: LEVOFLOXACIN 250 MG /D5W 50 ML 250 MG in PREMIX 1 EA IV SCH (21:10)
[2017-07-30] VITALS: BP 92/49
[2017-07-30 04:00] VITALS: BP 87/47
[2017-07-30] MEDS: PIPERACILLIN /TAZOBACTAM 3.375 G in IV D5W 50 ML IV SCH (05:45)
[2017-07-30 08:00] VITALS: BP 102/49
[2017-07-30 08:36] LABS: CALCIUM, SERUM 8.6 mg/dL (8.5-10.1); CARBON DIOXIDE 21 mmol/L (21-32); CHLORIDE 109 mmol/L (98-107); GLUCOSE 96 mg/dL (74-106); POTASSIUM 3.1 mmol/L (3.5-5.1); SODIUM SERUM 141 mmol/L (136-145); UREA NITROGEN, BLOOD 17 mg/dL (7-18)
[2017-07-30] MEDS: VANCOMYCIN 500 MG in IV D5W 100 ML IV SCH ×2 (09:15→20:55)
[2017-07-30] MEDS: DOCUSATE SODIUM 100 MG CAPSULE PO SCH ×2 (09:46→17:00)
[2017-07-30] MEDS: POTASSIUM CHLORIDE 20 MEQ TAB.PRT.SR PO SCH (09:46)
[2017-07-30] MEDS: PAROXETINE HCL 20 MG TABLET PO SCH (09:46)
[2017-07-30] MEDS: LACTOBACILLUS RHAMNOSUS GG 1 EACH CAP.SPRINK PO SCH ×2 (09:46→17:00)
[2017-07-30] MEDS: FERROUS SULFATE (325 MG) 325 MG/TAB TABLET PO SCH ×2 (09:46→17:00)
[2017-07-30] MEDS: ZINC SULFATE 220 MG CAPSULE PO SCH (09:46)
[2017-07-30] MEDS: MULTIVIT, IRON, MIN NO. 8, FA 1 TAB PO SCH (09:46)
[2017-07-30] MEDS: PANTOPRAZOLE 40 MG TABLET.DR PO SCH (09:47)
[2017-07-30] MEDS: ENOXAPARIN SODIUM 40 MG/0.4 ML DISP.SYRIN SQ SCH (09:47)
[2017-07-30] MEDS: PROSOURCE / PROSTAT (PYXIS) 30 ML UDC PO SCH (09:49)
[2017-07-30 12:00] VITALS: BP 100/48
[2017-07-30] MEDS: IV NS 0.9% 1,000 ML IV PRN (13:31)
[2017-07-30 16:00] VITALS: BP 103/54
[2017-07-30] MEDS: ZOLPIDEM TARTRATE 5 MG TABLET PO SCH (18:00)
[2017-07-30 20:00] VITALS: BP 99/50
[2017-07-30] MEDS ORDERED: POTASSIUM CHLORIDE 20 MEQ TAB.PRT.SR PO ONE (20:00)
[2017-07-30] MEDS: LEVOFLOXACIN 250 MG /D5W 50 ML 250 MG in PREMIX 1 EA IV SCH (22:17)
[2017-07-31] VITALS: BP 102/56
[2017-07-31 01:02] VITALS: BP 102/56
[2017-07-31] MEDS: IV NS 0.9% 1,000 ML IV PRN (03:57)
[2017-07-31 04:00] VITALS: BP 104/46
[2017-07-31 07:25] LABS: BASOPHILS % (AUTO) 0.2 % (0.0-2.0); EOSINOPHILS # (AUTO) 0.1 /CMM (0.0-0.7); HEMATOCRIT 23 % (33-45); HEMOGLOBIN 7.5 g/dL (11.5-14.8); LYMPHOCYTES # (AUTO) 0.8 /CMM (0.8-4.8); LYMPHOCYTES % (AUTO) 10.9 % (20.0-44.0); MEAN CORPUSCULAR HEMOGLOBIN 24 PG (26.0-33.0); MEAN CORPUSCULAR HGB CONC 32 g/dl (31.0-36.0); MEAN CORPUSCULAR VOLUME 73 fL (82-100); MONOCYTES # (AUTO) 0.6 /CMM (0.1-1.30); MONOCYTES % (AUTO) 8.1 % (2.0-12.0); NEUTROPHILS # (AUTO) 5.5 /CMM (1.8-8.9); NEUTROPHILS % (AUTO) 79.8 % (43.0-81.0); PLATELET COUNT (AUTO) 470 /CMM (150-450); RDW COEFFICIENT OF VARIATION 21.6 (11.5-15.0); RED BLOOD CELL COUNT(AUTO) 3.16 MIL/uL (4.0-5.2); WHITE BLOOD COUNT (AUTO) 6.9 K/uL (4.3-11.0)
[2017-07-31 08:00] VITALS: BP 99/50
[2017-07-31 08:35] LABS: CALCIUM, SERUM 8.4 mg/dL (8.5-10.1); CARBON DIOXIDE 21 mmol/L (21-32); CHLORIDE 111 mmol/L (98-107); CREATININE 0.8 mg/dL (0.6-1.3); GLUCOSE 96 mg/dL (74-106); SODIUM SERUM 142 mmol/L (136-145); UREA NITROGEN, BLOOD 16 mg/dL (7-18)
[2017-07-31] MEDS: VANCOMYCIN 500 MG in IV D5W 100 ML IV SCH (08:50)
[2017-07-31] MEDS: PROSOURCE / PROSTAT (PYXIS) 30 ML UDC PO SCH (08:50)
[2017-07-31] MEDS: ZINC SULFATE 220 MG CAPSULE PO SCH (08:50)
[2017-07-31] MEDS: DOCUSATE SODIUM 100 MG CAPSULE PO SCH (08:50)
[2017-07-31] MEDS: MULTIVIT, IRON, MIN NO. 8, FA 1 TAB PO SCH (08:51)
[2017-07-31] MEDS: PANTOPRAZOLE 40 MG TABLET.DR PO SCH (08:51)
[2017-07-31] MEDS: FERROUS SULFATE (325 MG) 325 MG/TAB TABLET PO SCH (08:51)
[2017-07-31] MEDS: LACTOBACILLUS RHAMNOSUS GG 1 EACH CAP.SPRINK PO SCH (08:51)
[2017-07-31] MEDS: POTASSIUM CHLORIDE 20 MEQ TAB.PRT.SR PO SCH (08:51)
[2017-07-31] MEDS: ENOXAPARIN SODIUM 40 MG/0.4 ML DISP.SYRIN SQ SCH (08:52)
[2017-07-31] MEDS: PAROXETINE HCL 20 MG TABLET PO SCH (08:56)
[2017-07-31 09:56] LABS: EOSINOPHILS % (MANUAL) 1 % (0-4); LYMPHOCYTES % (MANUAL) 13 % (16-48); MONOCYTES % (MANUAL) 7 % (0-11.0); NEUTROPHILS % (MANUAL) 79 (42-76)
[2017-07-31 12:00] VITALS: BP 118/52
[2017-07-31] MEDS ORDERED: LEVO500T75 PO (13:45)
== END 2017-07-31 16:45 | DRG 871 ==
LOC: ER 13:15 → TELE-TD 14:50 → TELE1 20:46 → TELE-TD 20:52 → TELE1 07-29 17:48 → MEDSG1 07-31 11:50
PROVIDERS: ADMIT Family Medicine; ATTEND Family Medicine
PROC: 5A09457 Assistance with Respiratory Ventilation, 24-96 Consecutive Hours, Continuous Positive Airway Pressure (ICD-10-PCS; principal; 2017-07-28)
DX: A41.9 Sepsis, unspecified organism (principal); E43 Unspecified severe protein-calorie malnutrition; J96.00 Acute respiratory failure, unspecified whether with hypoxia or hypercapnia; J15.6 Pneumonia due to other Gram-negative bacteria; G82.50 Quadriplegia, unspecified; G93.41 Metabolic encephalopathy; J15.9 Unspecified bacterial pneumonia; N17.9 Acute kidney failure, unspecified; N39.0 Urinary tract infection, site not specified; D63.8 Anemia in other chronic diseases classified elsewhere; D50.9 Iron deficiency anemia, unspecified; F32.9 Major depressive disorder, single episode, unspecified; I12.9 Hypertensive chronic kidney disease with stage 1 through stage 4 chronic kidney disease, or unspecified chronic kidney disease; K21.9 Gastro-esophageal reflux disease without esophagitis; M19.90 Unspecified osteoarthritis, unspecified site; Z66 Do not resuscitate; Z90.49 Acquired absence of other specified parts of digestive tract; Z85.038 Personal history of other malignant neoplasm of large intestine; D47.3 Essential (hemorrhagic) thrombocythemia; E88.09 Other disorders of plasma-protein metabolism, not elsewhere classified; L98.8 Other specified disorders of the skin and subcutaneous tissue; G35 Multiple sclerosis; R65.20 Severe sepsis without septic shock; M62.50 Muscle wasting and atrophy, not elsewhere classified, unspecified site; B96.1 Klebsiella pneumoniae [K. pneumoniae] as the cause of diseases classified elsewhere; Z79.899 Other long term (current) drug therapy; N18.9 Chronic kidney disease, unspecified
CPT/HCPCS: 36415; 71045; 80048-TC; 80061-TC; 80076-TC; 80202-TC; 81000-TC; 83605-TC; 83735-TC; 83880; 84100-TC; 84484-TC; 85025-TC; 85730-TC; 87040-TC; 87081-TC; 87086-TC; 87186-TC; 87400; 92526; 92611-TC; 93307-TC; A4216; A4606; J0456; J0696; J1650; J1956; J2543; J3370; J7030; J7050; J7060; Z7610